=== PATIENT | male | born 1960 | race Caucasian/White ===

== ENCOUNTER → 2018-10-15 13:54 | Emergency (ER) | payer MEDICAID, OTHER ==
[~2018-10-15 13:54] MED LIST: HYDROcodone/ACETAMIN 5-325 MG* 1 TAB PO ONE; Ibuprofen TAB* 600 MG PO ONE
[2018-10-15 17:28] VITALS: BP 134/67
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
== END | disposition home or self-care (01) ==
LOC: ED 13:54
DX: M25.461 Effusion, right knee (principal); R60.0 Localized edema; Z88.2 Allergy status to sulfonamides; F17.210 Nicotine dependence, cigarettes, uncomplicated
CPT/HCPCS: 99282; A9270-GY

== ENCOUNTER → 2018-10-20 14:23 | Emergency (ER) | payer MEDICAID ==
[~2018-10-20 14:23] MED LIST changes: -Ibuprofen TAB* 600 MG PO ONE; +Lidocaine 1% MPF wEPI 200,000* 30 ML SDV INJ ONE; +Lidocaine 2% EPI 1:200000 MPF*10-20 ML VIAL ONE; +Morphine VIAL* 10 MG/ML 1 ML VIAL IM ONE; +Morphine VIAL* 4 MG/ML VIAL (1 ml vial) IM ONE; +Morphine VIAL* 4 MG/ML VIAL (1 ml vial) ONE
[2018-10-20 16:17] LABS: ABS Basophils 0.1 10^3/ul (0-0.2); ABS Eosinophils 0.2 10^3/ul (0-0.6); ABS Lymphocytes 1.8 10^3/ul (1.0-4.8); ABS Monocytes 0.8 10^3/ul (0-0.8); ABS Neutrophils 8.6 10^3/ul (1.5-7.7); ABS Nucleated RBC 0 10^3/ul; Hematocrit 41 % (42-52); Hemoglobin 14.3 g/dl (14.0-18.0); Lymphocyte % 15.6 %; Mean Corpuscular HGB Conc 35 g/dl (31-36); Mean Corpuscular Hemoglobin 30 pg (27-31); Mean Corpuscular Volume 86 fL (80-94); Mean Platelet Volume 6.6 fL (7.4-10.4); Nucleated Red Blood Cells % 0; Platelet Count 399 10^3/ul (150-450); Red Cell Distribution Width 13 % (10.5-15); White Blood Count 11.5 10^3/ul (3.5-10.8)
[2018-10-20 16:34] LABS: Albumin 3.9 g/dL (3.2-5.2); Albumin/Globulin Ratio 1.3 (1-3); BUN/Creatinine Ratio 20.7 (8-20); C Reactive Protein 194.01 mg/L (<8.01); Calcium 9.6 mg/dL (8.6-10.3); EGFR Non-African American 96.8 (>60); Globulin 3.1 g/dL (2-4); Potassium 4.5 mmol/L (3.5-5.0); Total Bilirubin 0.4 mg/dL (0.2-1.0)
[2018-10-20 17:00] LABS: Erythrocyte Sed Rate 70 mm/Hr (0-20)
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
[2018-10-20 18:01] VITALS: BP 146/78
[2018-10-23 16:49] LABS: Lyme Disease Serology Equivocal (Negative)
[2018-10-24 16:52] LABS: Lyme Disease IgG Ab WB Negative (Negative); Lyme Disease IgM Bands Present p41 kDa
== END | disposition home or self-care (01) ==
LOC: ED 14:23
DX: M25.461 Effusion, right knee (principal); Z72.0 Tobacco use; B19.20 Unspecified viral hepatitis C without hepatic coma; I10 Essential (primary) hypertension; I20.9 Angina pectoris, unspecified; Z88.2 Allergy status to sulfonamides; Z88.5 Allergy status to narcotic agent; F41.9 Anxiety disorder, unspecified
CPT/HCPCS: 20610; 36415; 80053; 85025; 85652; 86140; 86617; 86618; 96372; 99281; J2001; J2270

== ENCOUNTER 2018-11-11 19:17 | Emergency (ER) | payer MEDICAID ==
--- OUTSIDE RECORDS SUMMARY | 2018-11-11 19:49 | XMS REPORT | Continuity of Care Document ---
:1960 External Reference #:[id number] Author Name Camila Hargrove Care Team Providers Name Role Phone Sofia Medina MD Primary Care Physician Unavailable Payers Type Date Identification Numbers Payment Provider Subscriber Policy Number: [id number] Medicaid [employer] Name: 1 1 [address] PayID: [id number] [place] [address] Effective: 2012 Policy Number: [id number] [place] [employer] Expires: 2018 Group Name: [id number] [address] PayID: [id number] [place] [address] Advance Directives Description No Information Available Problems Description No Information Family History Date Family Member(s) Problem(s) Comments General Cancer General Rheumatoid Arthritis Social History Type Date Description Comments Sex Unknown Lives With Alone Occupation Unemployed ETOH Use Denies alcohol use Tobacco Use Start: Unknown Patient is a current smoker, smokes every day Smoking Status Reviewed: 11/09/18 Patient is a current smoker, smokes every day Exercise Type/Frequency Exercises regularly Allergies, Adverse Reactions, Alerts Date Description Reaction Status Severity Comments 11/04/2018 Vancomycin fever Active 11/09/2018 Sulfa Antibiotics Active 11/09/2018 Codeine Active Medications Medication Date Status Form Strength Qnty SIG Indications Ordering Provider Ceftriaxone Sodium Active Solution 2gm once Unknown /0000 Rec daily via picc line through [place] Eliquis Active Tablets 5mg take 1 Unknown /0000 tablet by mouth twice a day Hydrochlorothiazide Active Tablets 25mg take 1/2 Unknown /0000 tablet by mouth once daily Metformin HCL Active Tablets 500mg Take 1 Unknown /0000 Tablet By Mouth Twice A Day ( 8 Am And 5 PM) Metoprolol Tartrate Active Tablets 25mg Take Unknown /0000 1+1/2 Tablets By Mouth Twice A Day Potassium Chloride 00 Active Tablets 20Meq take 1 Unknown Sarah ER /0000 ER tablet by mouth once daily Tramadol HCL 0000 Active Tablets 50mg take 1 Unknown /0000 tablet by mouth 6 hours if needed for pain maximum daily dose of 4 Trazodone HCL 00 Active Tablets 50mg take 1 Unknown /0000 tablet by mouth at bedtime if needed for sleep Lisinopril 00 Active Tablets 10mg take 1 Unknown /0000 tablet by mouth once daily Immunizations Description No Information Available Vital Signs Date Vital Result Comment 11/09/2018 2:07pm Height 70 inches 5'10" Weight 230.00 lb patient states Heart Rate 84 /min BP Systolic 144 mmHg BP Diastolic 70 mmHg Body Temperature 98.7 F Pain Level 7 BMI (Body Mass Index) 33.0 kg/m2 06/28/2013 10:12am Height 70 inches 5'10" Weight 211.00 lb Heart Rate 72 /min BP Systolic 141 mmHg BP Diastolic 80 mmHg BMI (Body Mass Index) 30.3 kg/m2 Results Test Date Facility Test Result H/L Range Note CBC Auto Diff 11/07/2018 [facility] White Blood 12.3 10^3/uL High 3.5-10.[address] [place] [address] [phone] Red Blood Count 4.64 10^6/uL N 4.00-5.40 Hemoglobin 13.4 g/dL Low 14.0-18.0 Hematocrit 39 % Low 42-52 Mean Corpuscular Volume 84 fL N 80-94 Mean Corpuscular Hemoglobin 29 pg N 27-31 Mean Corpuscular HGB Conc 34 g/dL N 31-36 Red Cell Distribution Width 13 % N 10.5-15 Platelet Count 619 10^3/uL High 150-450 Mean Platelet Volume 6.8 fL Low 7.4-10.4 Abs Neutrophils 8.6 10^3/uL High 1.5-7.7 Abs Lymphocytes 2.2 10^3/uL N 1.0-4.8 Abs Monocytes 1.1 10^3/uL High 0-0.8 Abs Eosinophils 0.3 10^3/uL N 0-0.6 Abs Basophils 0.1 10^3/uL N 0-0.2 Abs Nucleated RBC 0 10^3/uL Granulocyte % 69.9 % Lymphocyte % 18.0 % Monocyte % 9.0 % Eosinophil % 2.6 % Basophil % 0.5 % Nucleated Red Blood Cells % 0 Comp Metabolic Panel 11/07/2018 [facility] Sodium 133 mmol/L Low 135-[address] [place] [address] [phone] Potassium 4.5 mmol/L N 3.5-5.0 Chloride 95 mmol/L Low 101-111 Co2 Carbon Dioxide 30 mmol/L N 22-32 Anion Gap 8 mmol/L N 2-11 Glucose 276 mg/dL High 70-100 Blood Urea Nitrogen 16 mg/dL N 6-24 Creatinine 0.73 mg/dL N 0.67-1.17 BUN/Creatinine Ratio 21.9 High 8-20 Calcium 10.2 mg/dL N 8.6-10.3 Total Protein 7.0 g/dL N 6.4-8.9 Albumin 3.6 g/dL N 3.2-5.2 Globulin 3.4 g/dL N 2-4 Albumin/Globulin Ratio 1.1 N 1-3 Total Bilirubin 0.60 mg/dL N 0.2-1.0 Alkaline Phosphatase 92 U/L N 34-104 Alt 49 U/L N 7-52 Ast 15 U/L N 13-39 Egfr Non- 110.7 >60 Egfr 134.0 >60 1 Laboratory test 11/07/2018 [facility] C Reactive 110.06 mg/L High <8.[address] [place] [address] [phone] 1 Because ethnic data is not always readily available, this report includes an eGFR for both -Americans and non- Americans. The National Kidney Disease Education Program (NKDEP) does not endorse the use of the MDRD equation for patients that are not between the ages of 18 and 70, are , have extremes of body size, muscle mass, or nutritional status, or are non- or non-. According to the National Kidney Foundation, irrespective of diagnosis, the stage of the disease is based on the level of kidney function: Stage Description GFR(mL/min/1.73 m(2)) 1 Kidney damage with normal or decreased GFR 90 2 Kidney damage with mild decrease in GFR 60-89 3 Moderate decrease in GFR 30-59 4 Severe decrease in GFR 15-29 5 Kidney failure <15 (or dialysis) Procedures Date Code Description Status 10/30/2018 08473 Arthroscopy,Knee For Infection,Lavage & Drainage Completed 10/30/2018 40784 Arthroscopy,Knee For Infection,Lavage & Drainage Completed 09/08/2013 09307 Left Heart Cath. Incl S/I Coronaries, Angio S/I V Gram If Completed Done 09/08/2013 90862 Cath PLMT&NJX L Ventriculog Img S&I Completed 09/08/2013 11968 Left Health Catheterization W/Inj For Left Completed Ventriculography,S&I 09/07/2013 57840 ECHO Transthorasic Realtime 2D W Doppler & Color Flow Hosp Completed 09/07/2013 32937 Treadmill Interp/Report Only Completed 09/07/2013 75311 Treadmill Interp/Report Only Completed 09/07/2013 85546 Stress Test Supervsn W/Out I/R Completed 09/07/2013 86984 Stress Test Supervsn W/Out I/R Completed 06/12/2013 19926 EKG, Interpretation Only Completed Encounters Type Date Location Provider Dx Diagnosis Office Visit 11/03/2018 [facility] M00.861 Arthritis due to 11:53a july Castillo M.D. other bacteria, Hospitalists right knee E11.9 Type 2 diabetes mellitus without complications I82.401 Acute embolism and thombos unsp deep veins of r low extrem I10 Essential (primary) hypertension Office Visit 11/02/2018 [facility] E11.9 Type 2 diabetes 11:52a july Castillo M.D. mellitus without Hospitalists complications I82.409 Acute embolism and thombos unsp deep vn unsp lower extremity M00.861 Arthritis due to other bacteria, right knee I10 Essential (primary) hypertension Office Visit 11/01/2018 [facility] E11.9 Type 2 diabetes 11:49a july Castillo M.D. mellitus without Hospitalists complications I82.409 Acute embolism and thombos unsp deep vn unsp lower extremity M00.861 Arthritis due to other bacteria, right knee I10 Essential (primary) hypertension Office Visit 10/31/2018 [facility] Rm M00.861 Arthritis due 11:48a Assoc,july Duarte MD to other Hospitalists bacteria, right knee I82.409 Acute embolism and thombos unsp deep vn unsp lower extremity R73.9 Hyperglycemia, unspecified I10 Essential (primary) hypertension Office Visit 10/30/2018 [facility] Thomas Abdalla M00.861 Arthritis due 11:48a Assoc,july Duarte MD to other Hospitalists bacteria, right knee R73.9 Hyperglycemia, unspecified I10 Essential (primary) hypertension Office Visit 03/19/2016 12:20p [facility] Mary Kay Mast, R79.89 Other specified Assoc,july [place] abnormal Hospitalists findings of blood chemistry B19.20 Unspecified viral hepatitis C without hepatic coma Z72.0 Tobacco use Office Visit 03/18/2016 12:17p [facility] Ina R79.89 Other specified Assoc,july Coon NP abnormal Hospitalists findings of blood chemistry B19.20 Unspecified viral hepatitis C without hepatic coma Z72.0 Tobacco use I10 Essential (primary) hypertension Office Visit 09/08/2013 3:50p [facility] Pavel Rangel, 786.50 Pain Chest Assoc,july [place] Unspec Hospitalists 300.00 Anxiety State Unspec 401.9 Hypertension Unspec 305.1 Tobacco Use Disorder Office Visit 09/08/2013 3:32p [facility] Qutaybeh S. 786.50 Pain Chest Rosemarie Swift Unspec Office Visit 09/07/2013 11:28a [facility] Qutaybeh S. 786.50 Pain Chest Rosemarie Swift Unspec Office Visit 09/05/2013 3:49p [facility] Sisi Real, 786.50 Pain Chest Assoc,pc D.O. Unspec Hospitalists 401.9 Hypertension Unspec 305.1 Tobacco Use Disorder 300.00 Anxiety State Unspec Office Visit 06/12/2013 1:43p [facility] Mary Kay Mast, 461.9 Sinusitis Acute Assoc,july [place] Unspec Hospitalists 780.02 Transient Alteration Of Awareness 070.54 Hepatitis C Viral Chronic W/O Hepatic Coma Office Visit 06/11/2013 [facility] Mary Kay 485 Bronchopneumonia 1:42p Assoc,pc Kezia, M.D. Organism Unspec Hospitalists 995.91 Sepsis 461.9 Sinusitis Acute Unspec 780.02 Transient Alteration Of Awareness Office 05/15/2013 [facility] 842.13 Sprains & Strains Visit 11:00a [facility] Hand C.M.A. Interphalangeal (Joint) Office 05/02/2013 [facility] 841.1 Sprains & Strains Visit 11:00a [facility] Ulnar Collateral C.M.A. (Ligament) Plan of Treatment Future Appointment(s):11/22/2018 10:50 am - Mikie Tillman M.D. at [facility] Hkozbnjk68/23/2019 - Sana Bee M.D.M00.861 Arthritis due to other bacteria, right kneeFollow up:Follow up: 9-10 days nsswicR34.401 Acute embolism and thrombosis of unspecified deep veins of r
[2018-11-11] MEDS ORDERED: oxyCODONE TAB* 5 MG TAB PO ONE (20:17)
[2018-11-11 20:50] VITALS: BP 110/70
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
== END 2018-11-11 20:50 | disposition home or self-care (01) ==
LOC: ED 19:17
DX: T82.898A Other specified complication of vascular prosthetic devices, implants and grafts, initial encounter (principal); Z88.5 Allergy status to narcotic agent; Z88.2 Allergy status to sulfonamides; F17.210 Nicotine dependence, cigarettes, uncomplicated
CPT/HCPCS: 99282; A9270-GY

== ENCOUNTER 2018-12-29 15:13 | Emergency (ER) | payer MEDICAID, OTHER ==
--- OUTSIDE RECORDS SUMMARY | 2018-12-29 15:19 | XMS REPORT | Continuity of Care Document ---
:1960 External Reference #:[id number] Author Name Con Davis M.D. Address [address] [place] [address] Care Team Providers Name Role Phone Sofia Medina M.D. Primary Care Physician Unavailable Payers Date Identification Numbers Payment Provider Subscriber Policy Number: [id number] Medicaid Gray Ervin PayID: [id number] [address] [place] [address] Advance Directives Description No Information Available Problems Date Description Provider Status Onset: Type 2 diabetes mellitus Active Onset: Essential hypertension Active Onset: Arthritis Active Family History Date Family Member(s) Observation Comments Father No Current Problems Mother No Current Problems Paternal Grandmother Glaucoma Social History Type Date Description Comments Sex Unknown Marital Status Single Occupation Self-Employed Work Status Full-Time Employment ETOH Use Denies alcohol use Tobacco Use Start: Unknown Heavy tobacco smoker (more than 10 cigarettes/day) Recreational Drug Use Denies Drug Use Smoking Status Reviewed: 12/01/18 Heavy tobacco smoker (more than 10 cigarettes/day) Allergies, Adverse Reactions, Alerts Date Description Reaction Status Severity Comments 12/01/2018 Codeine Active 12/01/2018 Sulfa Antibiotics Active Medications Medication Date Status Form Strength Qnty SIG Indications Ordering Provider Gabapentin Active Capsules 300mg take 1 Unknown /0000 capsule by mouth twice a day Metformin HCL Active Tablets 500mg take 2 Unknown /0000 tablets by mouth twice a day Hydrocodone-Acetam Active Tablets 5-325mg Unknown inophen /0000 Oxycodone HCL Active Tablets 5mg take 1 Unknown /0000 tablet by mouth every 6 hours if needed (Use To Alternate ... (Refer To Prescriptio n Notes). Potassium Chloride Active Tablets 20Meq take 1 Unknown Sarah ER /0000 ER tablet by mouth once daily Metoprolol Active Tablets 25mg Take 1+1/2 Unknown Tartrate /0000 Tablets By Mouth Twice A Day Hydrochlorothiazid Active Tablets 25mg take 1/2 Unknown e /0000 tablet by mouth once daily Eliquis Active Tablets 5mg take 1 Unknown /0000 tablet by mouth twice a day Symbicort Active Aerosol 160-4.5mc Unknown /0000 g/Act Lisinopril Active Tablets 10mg take 1 Unknown /0000 tablet by mouth once daily Immunizations Description No Information Available Vital Signs Description No Information Available Results Description No Information Available Procedures Description No Information Available Encounters Description No Information Available Plan of Treatment 12/01/2018 - Con Davis M.D.E11.9 Type 2 diabetes mellitus without complicationsComments:Smoking can increase the risk of developing or worsening any eye related disease, as well as affect your overall health. If you are a smoker, we strongly recommend that you quit.If you are not a smoker, we strongly recommend that you do not start. You have diabetes. I do not detect any changes in both of your retinas from diabetes at this time. Proper control of your diabetes is important for the health of your eyes. Changes in your eyes from diabetes can happen without symptoms, so it is important that you have your eyes examined.Follow up:1 Year Follow Up DFE You can expect to have your eyes dilated at your next visit. If Dr. Davis orders any additional testing, it may require extra time. We recommend that you bring sunglasses, as dilation drops often make you light sensitive until they wear off. We always recommend you bring someone to drive you home if you are uncomfortable driving with your eyes dilated. If you have any questions before your next visit, feel free to call our office at .H25.13 Age-related nuclear cataract, bilateralComments:You have been diagnosed with cataracts. If you are happy with your vision as it is now, then we willsee you at your next scheduled appointment. If you feel like your vision is getting worse before your scheduled appointment, please call [facility]ai or [facility] at [phone].
--- OUTSIDE RECORDS SUMMARY | 2018-12-29 15:19 | XMS REPORT | Continuity of Care Document ---
:1960 External Reference #:[id number] Author Name Elida Gonzalez Care Team Providers Name Role Phone Sofia Medina MD Primary Care Physician Unavailable Payers Date Identification Numbers Payment Provider Subscriber Policy Number: [id number] Medicaid Jinny Ervin Group Name: 1 1 [address] PayID: [id number] [place] [address] Effective: 2012 Policy Number: [id number] Wili Jinny Ervin Expires: 2018 Group Name: [id number] [address] PayID: [id number] [place] [address] Advance Directives Description No Information Available Problems Description No Information Family History Date Family Member(s) Observation Comments General Cancer General Rheumatoid Arthritis Social History Type Date Description Comments Sex Unknown Lives With Alone Occupation Unemployed ETOH Use Denies alcohol use Tobacco Use Start: Unknown Patient is a current smoker, smokes every day Smoking Status Reviewed: 12/01/18 Patient is a current smoker, smokes every day Exercise Type/Frequency Exercises regularly Allergies, Adverse Reactions, Alerts Date Description Reaction Status Severity Comments 11/04/2018 Vancomycin fever Active 11/09/2018 Sulfa Antibiotics Active 11/09/2018 Codeine Active Medications Medication Date Status Form Strength Qnty SIG Indications Ordering Provider Oxycodone HCL 11/19 Active Tablets 5mg 12tab 1 tabs by s mouth every F 6 hours as Sung, needed use MD to alternate with hydrocodone for 3 days Colace 11/19 Active Capsules 100mg 30cap 1 tab by s mouth twice F a day as Sung, needed for MD constipatio n Hydrocodone-Acetam 11/09 Active Tablets 5-325mg 40tab 1 tabs s every 4-6 F hours as Sung, needed for MD pain. MDD 6 Ceftriaxone Sodium Active Solution 2gm once daily Unknown /0000 Rec via picc line through [facility] Eliquis Active Tablets 5mg 60tab take 1 Niko s tablet by F mouth twice Sung, a day MD Hydrochlorothiazid Active Tablets 25mg take 1/2 Unknown e /0000 tablet by mouth once daily Metformin HCL Active Tablets 500mg Take 1 Unknown /0000 Tablet By Mouth Twice A Day ( 8 Am And 5 PM) Metoprolol Active Tablets 25mg Take 1+1/2 Unknown Tartrate /0000 Tablets By Mouth Twice A Day Potassium Chloride Active Tablets 20Meq take 1 Unknown Sarah ER /0000 ER tablet by mouth once daily Tramadol HCL Active Tablets 50mg take 1 Unknown /0000 tablet by mouth 6 hours if needed for pain maximum daily dose of 4 Trazodone HCL Active Tablets 50mg take 1 Unknown /0000 tablet by mouth at bedtime if needed for sleep Lisinopril Active Tablets 10mg take 1 Unknown /0000 tablet by mouth once daily Immunizations Description No Information Available Vital Signs Date Vital Result Comment 12/01/2018 12:55pm Height 70 inches 5'10" Weight 230.00 lb Heart Rate 99 /min BP Systolic 128 mmHg BP Diastolic 68 mmHg Respiratory Rate 20 /min Body Temperature 97.2 F Pain Level 6 BMI (Body Mass Index) 33.0 kg/m2 11/14/2018 2:02pm Height 70 inches 5'10" Weight 230.00 lb BP Systolic 112 mmHg BP Diastolic 70 mmHg Pain Level 9 BMI (Body Mass Index) 33.0 kg/m2 11/09/2018 2:07pm Height 70 inches 5'10" Weight [...] Result H/L Range Note CBC Auto Diff 11/28/2018 [facility] White Blood 8.6 10^3/uL N 3.5-10.[address] [place] [address] [phone] Red Blood Count 4.14 10^6/uL N 4.00-5.40 Hemoglobin 12.4 g/dL Low 14.0-18.0 Hematocrit 35 % Low 42-52 Mean Corpuscular Volume 85 fL N 80-94 Mean Corpuscular Hemoglobin 30 pg N 27-31 Mean Corpuscular HGB Conc 35 g/dL N 31-36 Red Cell Distribution Width 14 % N 10.5-15 Platelet Count 396 10^3/uL N 150-450 Mean Platelet Volume 6.6 fL Low 7.4-10.4 Abs Neutrophils 5.2 10^3/uL N 1.5-7.7 Abs Lymphocytes 2.4 10^3/uL N 1.0-4.8 Abs Monocytes 0.6 10^3/uL N 0-0.8 Abs Eosinophils 0.4 10^3/uL N 0-0.6 Abs Basophils 0.1 10^3/uL N 0-0.2 Abs Nucleated RBC 0 10^3/uL Granulocyte % 59.9 % Lymphocyte % 28.3 % Monocyte % 6.5 % Eosinophil % 4.7 % Basophil % 0.6 % Nucleated Red Blood Cells % 0 Comp Metabolic Panel 11/28/2018 [facility] Sodium 135 mmol/L N 135-[address] [place] [address] [phone] Potassium 4.2 mmol/L N 3.5-5.0 Chloride 99 mmol/L Low 101-111 Co2 Carbon Dioxide 28 mmol/L N 22-32 Anion Gap 8 mmol/L N 2-11 Glucose 160 mg/dL High 70-100 Blood Urea Nitrogen 16 mg/dL N 6-24 Creatinine 0.71 mg/dL N 0.67-1.17 BUN/Creatinine Ratio 22.5 High 8-20 Calcium 10.1 mg/dL N 8.6-10.3 Total Protein 7.2 g/dL N 6.4-8.9 Albumin 4.2 g/dL N 3.2-5.2 Globulin 3.0 g/dL N 2-4 Albumin/Globulin Ratio 1.4 N 1-3 Total Bilirubin 0.50 mg/dL N 0.2-1.0 Alkaline Phosphatase 87 U/L N 34-104 Alt 19 U/L N 7-52 Ast 10 U/L Low 13-39 Egfr Non- 114.4 >60 Egfr 138.4 >60 1 Laboratory test 11/28/2018 [facility] C Reactive 11.56 mg/L High <8.[address] [place] [address] [phone] CBC Auto Diff 11/23/2018 [facility] White Blood 8.4 N 3.5- 10.[address] Count 10^3/[place] [address] [phone] Red Blood Count 4.05 10^6/uL N 4.00-5.40 Hemoglobin 12.1 g/dL Low 14.0-18.0 Hematocrit 34 % Low 42-52 Mean Corpuscular Volume 85 fL N 80-94 Mean Corpuscular Hemoglobin 30 pg N 27-31 Mean Corpuscular HGB Conc 35 g/dL N 31-36 Red Cell Distribution Width 13 % N 10.5-15 Platelet Count 456 10^3/uL High 150-450 Mean Platelet Volume 6.7 fL Low 7.4-10.4 Abs Neutrophils 5.7 10^3/uL N 1.5-7.7 Abs Lymphocytes 1.8 10^3/uL N 1.0-4.8 Abs Monocytes 0.6 10^3/uL N 0-0.8 Abs Eosinophils 0.3 10^3/uL N 0-0.6 Abs Basophils 0.1 10^3/uL N 0-0.2 Abs Nucleated RBC 0 10^3/uL Granulocyte % 67.8 % Lymphocyte % 21.1 % Monocyte % 6.8 % Eosinophil % 3.6 % Basophil % 0.7 % Nucleated Red Blood Cells % 0.1 Comp Metabolic Panel 11/23/2018 [facility] Sodium 136 mmol/L N 135-[address] [place] [address] [phone] Potassium 4.4 mmol/L N 3.5-5.0 Chloride 100 mmol/L Low 101-111 Co2 Carbon Dioxide 27 mmol/L N 22-32 Anion Gap 9 mmol/L N 2-11 Glucose 236 mg/dL High 70-100 Blood Urea Nitrogen 15 mg/dL N 6-24 Creatinine 0.82 mg/dL N 0.67-1.17 BUN/Creatinine Ratio 18.3 N 8-20 Calcium 9.9 mg/dL N 8.6-10.3 Total Protein 7.0 g/dL N 6.4-8.9 Albumin 4.0 g/dL N 3.2-5.2 Globulin 3.0 g/dL N 2-4 Albumin/Globulin Ratio 1.3 N 1-3 Total Bilirubin 0.30 mg/dL N 0.2-1.0 Alkaline Phosphatase 98 U/L N 34-104 Alt 22 U/L N 7-52 Ast 10 U/L Low 13-39 Egfr Non- 96.8 >60 Egfr 117.2 >60 2 Laboratory test 11/23/2018 [facility] C Reactive 11.51 High < 8.[address] Protein mg/[place] [address] [phone] Laboratory test 11/16/2018 [facility] Point of Care 204 mg/dL High 70-100 [address] [place] [address] [phone] Laboratory test 11/14/2018 [facility] Erythrocyte Sed 101 mm/Hr High 0-[address] [place] [address] [phone] CBC Auto Diff 11/14/2018 [facility] White Blood 12.1 High 3.5- 10.[address] Count 10^3/[place] [address] [phone] Red Blood Count 4.22 10^6/uL N 4.00-5.40 Hemoglobin 12.2 g/dL Low 14.0-18.0 Hematocrit 36 % Low 42-52 Mean Corpuscular Volume 85 fL N 80-94 Mean Corpuscular Hemoglobin 29 pg N 27-31 Mean Corpuscular HGB Conc 34 g/dL N 31-36 Red Cell Distribution Width 13 % N 10.5-15 Platelet Count 578 10^3/uL High 150-450 Mean Platelet Volume 7.1 fL Low 7.4-10.4 Abs Neutrophils 8.7 10^3/uL High 1.5-7.7 Abs Lymphocytes 2.4 10^3/uL N 1.0-4.8 Abs Monocytes 0.7 10^3/uL N 0-0.8 Abs Eosinophils 0.3 10^3/uL N 0-0.6 Abs Basophils 0.1 10^3/uL N 0-0.2 Abs Nucleated RBC 0 10^3/uL Granulocyte % 71.6 % Lymphocyte % 19.9 % Monocyte % 5.9 % Eosinophil % 2.1 % Basophil % 0.5 % Nucleated Red Blood Cells % 0.1 Laboratory test 11/14/2018 [facility] C Reactive 84.39 mg/L High <8.[address] Protein [place], [place] [id number] [phone] Comp Metabolic 11/14/2018 [facility] Sodium 130 mmol/L Low 135 -[address] [place] [address] [phone] Potassium 4.8 mmol/L N 3.5-5.0 Chloride 94 mmol/L Low 101-111 Co2 Carbon Dioxide 29 mmol/L N 22-32 Anion Gap 7 mmol/L N 2-11 Glucose 357 mg/dL High 70-100 Blood Urea Nitrogen 19 mg/dL N 6-24 Creatinine 0.83 mg/dL N 0.67-1.17 BUN/Creatinine Ratio 22.9 High 8-20 Calcium 10.0 mg/dL N 8.6-10.3 Total Protein 7.2 g/dL N 6.4-8.9 Albumin 3.9 g/dL N 3.2-5.2 Globulin 3.3 g/dL N 2-4 Albumin/Globulin Ratio 1.2 N 1-3 Total Bilirubin 0.40 mg/dL N 0.2-1.0 Alkaline Phosphatase 87 U/L N 34-104 Alt 25 U/L N 7-52 Ast 11 U/L Low 13-39 Egfr Non- 95.5 >60 Egfr 115.5 >60 4 Wound 11/09/2018 [facility] Wound/Misc SEE RESULT 5 Culture/Sensi [address] [place] [address] Stain [phone] Laboratory test 11/09/2018 [facility] Anaerobic SEE RESULT [address] [place] [place] [address] [phone] Laboratory test 11/09/2018 [facility] Point of Care 224 mg/dL High 70-1 [address] Glucose 00 [place] [address] [phone] CBC Auto Diff 11/07/2018 [facility] White Blood 12.3 High 3.5 - [address] Count 10^3/uL 10.8 [place] [address] [phone] Red Blood Count 4.64 10^6/uL N 4.00-5.40 [...] Cells % 0 Comp Metabolic Panel 11/07/2018 [facility] Sodium 133 mmol/L Low 135-[address] [place] [address] [phone] Potassium 4.5 mmol/L N 3.5-5.0 Chloride 95 [...] Egfr Non- 110.7 >60 Egfr 134.0 >60 8 Laboratory test 11/07/2018 [facility] C Reactive 110.06 mg/L High <8.[address] [address] [phone] 1 Because ethnic data is not always [...] 15-29 5 Kidney failure <15 (or dialysis) 2 Because ethnic data is not always readily [...] 15-29 5 Kidney failure <15 (or dialysis) 3 Drill Operator Pneumatic: [id number] 4 Because ethnic data is not always readily [...] 15-29 5 Kidney failure <15 (or dialysis) 5 SEE RESULT BELOW Name: JINNY ERVIN : [address]: Sana Bee MD Acct: [id number] Unit: [id number] AGE: 58 Location: OR Re11/09/18 SEX: M Status: REG SDC SPEC: [id number] JAYLEN: 11/09/18 [facility] [address]: Sana Bee MD REQ: [id number] RECD: 11/09/18 STATUS: JET HUANG DR: Sofia Medina MD _ SOURCE: KNEE,RIGHT SPDESC: ORDERED: Culture Stain Procedure Result Reported Site Wound/Misc Gram Stain Final 11/10/18832 ML 4+ Neutrophils No Organisms Seen BY CYTOSPIN SMEAR Wound/Misc Culture Final 11/13/18816 ML No Growth Day 4 * ML - Main Lab . END OF REPORT DEPARTMENT OF PATHOLOGY, [address] [place] [address] Yevgeniy Donahue M.D. Director [facility] # [id number] 6 SEE RESULT BELOW Name: JINNY ERVIN : [address]: Sana Bee MD Acct: [id number] Unit: [id number] AGE: 58 Location: OR Re11/09/18 SEX: M Status: REG SDC SPEC: [id number] JAYLEN: 11/09/18 [facility] [address]: Sana Bee MD REQ: [id number] RECD: 11/09/18 STATUS: JET HUANG DR: Sofia Medina MD _ SOURCE: WOUND SPDESC:KNEE RIGHT ORDERED: Anaerobic Cult Procedure Result Reported Site Anaerobic Culture Final 11/13/18- 18 ML No Growth Day 4 * ML - Main Lab . END OF REPORT DEPARTMENT OF PATHOLOGY, [address] [place] [address] Yevgeniy Donahue M.D. Director [facility] # [id number] 7 Drill Operator Pneumatic: [id number] 8 Because ethnic data is not always readily [...] (or dialysis) Procedures Date Code Description Status 11/16/2018 39772 Arthroscopy Knee Synovectomy Major Completed 11/16/2018 53989 Arthroscopy Knee Synovectomy Major Completed 11/09/2018 29459 Arthroscopy,Knee For Infection,Lavage & Drainage Completed 11/09/2018 87217 Arthroscopy,Knee For Infection,Lavage & Drainage Completed 10/30/2018 51626 Arthroscopy,Knee For Infection,Lavage & Drainage Completed 10/30/2018 01577 Arthroscopy,Knee For Infection,Lavage & Drainage Completed 09/08/2013 34536 Left Heart Cath. Incl S/I Coronaries, Angio S/I V Gram If Completed Done 09/08/2013 11663 Cath PLMT&NJX L Ventriculog Img S&I Completed 09/08/2013 89216 Left Health Catheterization W/Inj For Left Completed Ventriculography,S&I 09/07/2013 14531 ECHO Transthorasic Realtime 2D W Doppler & Color Flow Hosp Completed 09/07/2013 57158 Treadmill Interp/Report Only Completed 09/07/2013 12772 Treadmill Interp/Report Only Completed 09/07/2013 39367 Stress Test Supervsn W/Out I/R Completed 09/07/2013 81236 Stress Test Supervsn W/Out I/R Completed 06/12/2013 14912 EKG, Interpretation Only Completed Encounters Type Date Location Provider Dx Diagnosis Office Visit 11/19/[address] [facility] [address] Hayes M00.9 Pyogenic 12:55p july Castillo M.D.,FACP arthritis, Hospitalists unspecified E11.9 Type 2 diabetes mellitus without complications I10 Essential (primary) hypertension I82.409 Acute embolism and thombos unsp deep vn unsp lower extremity Office Visit 11/17/2018 12:54p [facility] Alma M00.9 Pyogenic Assocjuly, arthritis, Hospitalists GANG SUPERVISOR unspecified E11.65 Type 2 diabetes mellitus with hyperglycemia I10 Essential (primary) hypertension Office Visit 11/16/2018 [facility] Mary Kay Mast, M00.861 Arthritis due 12:54p july Castillo M.D. to other Hospitalists bacteria, right knee E11.9 Type 2 diabetes mellitus without complications I10 Essential (primary) hypertension Office Visit 11/03/2018 [facility] M00.861 Arthritis due 11:53a july Castillo M.D. to other Hospitalists bacteria, right knee E11.9 Type 2 diabetes mellitus without complications I82.401 Acute embolism and thombos unsp deep veins of r low extrem I10 Essential (primary) hypertension Office Visit 11/02/2018 [facility] E11.9 Type 2 diabetes 11:52a july Castillo M.D. mellitus without Hospitalists complications I82.409 Acute embolism and thombos unsp deep vn unsp lower extremity M00.861 Arthritis due to other bacteria, right knee I10 Essential (primary) hypertension Office Visit 11/01/2018 [facility] E11.9 Type 2 diabetes 11:49a july Castillo M.D. mellitus without Hospitalists complications I82.409 Acute embolism and thombos unsp deep vn unsp lower extremity M00.861 Arthritis due to other bacteria, right knee I10 Essential (primary) hypertension Office Visit 10/31/2018 [place] Sylvia Hayes M00.861 Arthritis due 10:05a Infectious [place]que[place], M.D. to other Diseases bacteria, right knee Office Visit 10/31/2018 [facility] Thomas Abdalla M00.861 Arthritis due 11:48a Assoc,july Duarte MD to other Hospitalists bacteria, right knee I82.409 Acute embolism and thombos unsp deep vn unsp lower extremity R73.9 Hyperglycemia, unspecified I10 Essential (primary) hypertension Office Visit 10/30/2018 [facility] Thomas Abdalla M00.861 Arthritis due 11:48a Assoc,july Duarte MD to other Hospitalists bacteria, right knee R73.9 Hyperglycemia, unspecified I10 Essential (primary) hypertension Office Visit 10/29/2018 11:47a [facility] Sisi M25.561 Pain in Assoc,july Real D.O. right knee Hospitalists R73.9 Hyperglycemia, unspecified I10 Essential (primary) hypertension Office Visit 03/19/2016 12:20p [facility] Mary Kay Mast, R79.89 Other specified Assoc,july [place] abnormal Hospitalists findings of blood chemistry B19.20 Unspecified viral hepatitis C without hepatic coma Z72.0 Tobacco use Office Visit 03/18/2016 12:17p [facility] Ina R79.89 Other specified Assoc,july Coon NP abnormal Hospitalists findings of blood chemistry B19.20 Unspecified viral hepatitis C without hepatic coma Z72.0 Tobacco use I10 Essential (primary) hypertension Office Visit 09/08/2013 3:50p [facility] Pavel Rangel, 786.50 Pain Chest Assocjuly M.D. Unspec Hospitalists 300.00 Anxiety State Unspec 401.9 Hypertension Unspec 305.1 Tobacco Use Disorder Office Visit 09/08/2013 3:32p [place] [facility] Qutaybeh S. 786.50 Pain Chest Rosemarie Swift Unspec Office Visit 09/07/2013 11:28a [facility] Qutaybeh S. 786.50 Pain Chest Rosemarie Swift Unspec Office Visit 09/05/2013 3:49p [facility] Sisi Real, 786.50 Pain Chest Assoc,july D.O. Unspec Hospitalists 401.9 Hypertension Unspec 305.1 Tobacco Use Disorder 300.00 Anxiety State Unspec Office Visit 06/12/2013 1:43p [facility] Kezia, 461.9 Sinusitis Acute Assocjuly M.D. Unspec Hospitalists 780.02 Transient Alteration Of Awareness 070.54 Hepatitis C Viral Chronic W/O Hepatic Coma Office Visit 06/11/2013 [facility] 485 Bronchopneumonia 1:42p Assoc,july Mast M.D. Organism Unspec Hospitalists 995.91 Sepsis 461.9 Sinusitis Acute Unspec 780.02 Transient Alteration Of Awareness Office 05/15/2013 [facility] 842.13 Sprains & Strains Visit 11:00a [facility] Interphalangeal (Joint) Office 05/02/2013 [facility] 841.1 Sprains & Strains Visit 11:00a [facility] Ulnar Collateral [facility] (Ligament) Plan of Treatment Future Appointment(s):12/15/2018 9:45 am - Niko Almaraz MD at [facility]/01/2018 - Niko Almaraz, MDM00.9 Pyogenic arthritis, unspecifiedNew Therapy:Physical TherapyFollow up:Follow up: 2 azbqbT90.65 Type 2 diabetes mellitus with hyperglycemia
--- OUTSIDE RECORDS SUMMARY | 2018-12-29 15:19 | XMS REPORT | Continuity of Care Document ---
:1960 External Reference #:[id number] Author Name Elida Gonzalez Care Team Providers Name Role Phone Sofia Medina MD Primary Care Physician Unavailable Payers Date Identification Numbers Payment Provider Subscriber Policy Number: [id number] Medicaid Jinny Ervin Group Name: 1 1 [address] PayID: [id number] [place] [address] Effective: 2012 Policy Number: [id number] Wili Jinny Ervin Expires: 2018 Group Name: [id number] [address] PayID: [id number] [place] [address] Advance Directives Description No Information Available Problems Description No Information Family History Date Family Member(s) Observation Comments General Cancer General Rheumatoid Arthritis Social History Type Date Description Comments Sex Unknown Lives With Alone Occupation Unemployed ETOH Use Denies alcohol use Tobacco Use Start: Unknown Patient is a current smoker, smokes every day Smoking Status Reviewed: 12/15/18 Patient is a current smoker, smokes every day Exercise Type/Frequency Exercises regularly Allergies, Adverse Reactions, Alerts Date Description Reaction Status Severity Comments 11/04/2018 Vancomycin fever Active 11/09/2018 Sulfa Antibiotics Active 11/09/2018 Codeine Active Medications Medication Date Status Form Strength Qnty SIG Indications Ordering Provider Naproxen 12/15 Active Tablets 500mg 60tab 1 by mouth M00.261 s twice a day F as needed Sung, pain Colyvonne 11/19 Active Capsules 100mg 30cap 1 tab by s mouth twice F a day as Sung, needed for constipatio n Hydrocodone-Acetam 11/09 Active Tablets 5-325mg 40tab 1 tabs s every 4-6 F hours as Sung, needed for pain. mdd 6 Eliquis Active Tablets 5mg 60tab take 1 s tablet by F mouth twice yanely Almaraz MD Metformin HCL Active Tablets 500mg Take 1 Unknown /0000 Tablet By Mouth Twice A Day ( 8 Am And 5 PM) Metoprolol Active Tablets 25mg Take 1+1/2 Unknown Tartrate /0000 Tablets By Mouth Twice A Day Potassium Chloride Active Tablets 20Meq take 1 Unknown Sarah ER /0000 ER tablet by mouth once daily Lisinopril Active Tablets 10mg take 1 Unknown /0000 tablet by mouth once daily Oxycodone HCL 11/19 Hx Tablets 5mg 12tab 1 tabs by s mouth every F - 6 hours as Sung, 12/15 needed use to alternate with hydrocodone for 3 days Ceftriaxone Sodium Hx Solution 2gm once daily Unknown /0000 Rec via picc - line 12/15 through [facility] Hydrochlorothiazid Hx Tablets 25mg take 1/2 Unknown e /0000 tablet by - mouth once 12/15 Tramadol HCL Hx Tablets 50mg take 1 Unknown /0000 tablet by - mouth 6 12/15 hours if needed for pain maximum daily dose of 4 Trazodone HCL Hx Tablets 50mg take 1 Unknown /0000 tablet by - mouth at 12/15 bedtime needed for sleep Immunizations Description No Information Available Vital Signs Date Vital Result Comment 12/15/2018 9:31am Height 70 inches 5'10" Weight 229.00 lb BP Systolic 152 mmHg BP Diastolic 78 mmHg Pain Level 5 BMI (Body Mass Index) 32.9 kg/m2 12/01/2018 2:45pm Height 70 inches 5'10" Weight 229.00 lb Heart Rate 92 /min BP Systolic Sitting 142 mmHg BP Diastolic Sitting 80 mmHg Respiratory Rate 14 /min Body Temperature 98.6 F BMI (Body Mass Index) 32.9 kg/m2 12/01/2018 12:55pm Height 70 inches 5'10" Weight [...] Date Facility Test Result H/L Range Note Comp Metabolic Panel 12/05/2018 [facility] Sodium 136 mmol/L N 135-[address] [place] [address] [phone] Potassium 4.4 mmol/L N 3.5-5.0 Chloride 101 mmol/L N 101-111 Co2 Carbon Dioxide 29 mmol/L N 22-32 Anion Gap 6 mmol/L N 2-11 Glucose 149 mg/dL High 70-100 Blood Urea Nitrogen 9 mg/dL N 6-24 Creatinine 0.71 mg/dL N 0.67-1.17 BUN/Creatinine Ratio 12.7 N 8-20 Calcium 9.9 mg/dL N 8.6-10.3 Total Protein 7.0 g/dL N 6.4-8.9 Albumin 4.2 g/dL N 3.2-5.2 Globulin 2.8 g/dL N 2-4 Albumin/Globulin Ratio 1.5 N 1-3 Total Bilirubin 0.40 mg/dL N 0.2-1.0 Alkaline Phosphatase 81 U/L N 34-104 Alt 17 U/L N 7-52 Ast 11 U/L Low 13-39 Egfr Non- 114.4 >60 Egfr 138.4 >60 2 Laboratory test 12/05/2018 [facility] C Reactive 12.63 mg/L High <8.01 [address] [place] [address] [phone] CBC Auto Diff 12/05/2018 [facility] White Blood 6.9 N 3.5- 10.[address] Count 10^3/[place] [address] [phone] Red Blood Count 4.21 10^6/uL N 4.00-5.40 Hemoglobin 12.5 g/dL Low 14.0-18.0 Hematocrit 36 % Low 42-52 Mean Corpuscular Volume 85 fL N 80-94 Mean Corpuscular Hemoglobin 30 pg N 27-31 Mean Corpuscular HGB Conc 35 g/dL N 31-36 Red Cell Distribution Width 15 % N 10.5-15 Platelet Count 350 10^3/uL N 150-450 Mean Platelet Volume 6.9 fL Low 7.4-10.4 Abs Neutrophils 3.9 10^3/uL N 1.5-7.7 Abs Lymphocytes 2.1 10^3/uL N 1.0-4.8 Abs Monocytes 0.4 10^3/uL N 0-0.8 Abs Eosinophils 0.4 10^3/uL N 0-0.6 Abs Basophils 0.1 10^3/uL N 0-0.2 Abs Nucleated RBC 0 10^3/uL Granulocyte % 56.4 % Lymphocyte % 30.7 % Monocyte % 6.4 % Eosinophil % 5.7 % Basophil % 0.8 % Nucleated Red Blood Cells % 0.1 CBC Auto Diff 11/28/2018 [facility] White Blood 8.6 10^3/uL N 3.5-10.[address] [place] [address] [phone] Red Blood Count 4.14 10^6/uL N 4.00-5.40 [...] Cells % 0 Comp Metabolic Panel 11/28/2018 [facility] Sodium 135 mmol/L N 135-[address] [place] [address] [phone] Potassium 4.2 mmol/L N 3.5-5.0 Chloride 99 [...] Egfr Non- 114.4 >60 Egfr 138.4 >60 4 Laboratory test 11/28/2018 [facility] C Reactive 11.56 mg/L High <8.[address] [place] [address] [phone] CBC Auto Diff 11/23/2018 [facility] White Blood 8.4 N 3.5- 10.[address] Count 10^3/[place] [address] [phone] Red Blood Count 4.05 10^6/uL N 4.00-5.40 [...] Cells % 0.1 Comp Metabolic Panel 11/23/2018 [facility] Sodium 136 mmol/L N 135-[address] [place] [address] [phone] Potassium 4.4 mmol/L N 3.5-5.0 Chloride 100 [...] Egfr Non- 96.8 >60 Egfr 117.2 >60 5 Laboratory test 11/23/2018 [facility] C Reactive 11.51 High < 8.[address] Protein mg/[place] [address] [phone] Laboratory test 11/16/2018 [facility] Point of Care 204 mg/dL High 70-100 [address] [place] [address] [phone] Laboratory test 11/14/2018 [facility] Erythrocyte Sed 101 mm/Hr High 0-[address] [place] [address] [phone] CBC Auto Diff 11/14/2018 [facility] White Blood 12.1 High 3.5- 10.[address] Count 10^3/[place] [address] [phone] Red Blood Count 4.22 10^6/uL N 4.00-5.40 [...] Blood Cells % 0.1 Laboratory test 11/14/2018 [facility] C Reactive 84.39 mg/L High <8.[address] [place] [address] [phone] Comp Metabolic 11/14/2018 [facility] Sodium 130 mmol/L Low 135 -[address] [place] [address] [phone] Potassium 4.8 mmol/L N 3.5-5.0 Chloride 94 [...] Egfr Non- 95.5 >60 Egfr 115.5 >60 7 Wound 11/09/2018 [facility] Wound/Misc SEE RESULT 8 Culture/Sensi [address] Culture[place] [address] Stain [phone] Laboratory test 11/09/2018 [facility] Anaerobic SEE RESULT [address] Culture BELOW [place], [place] [address] [phone] Laboratory test 11/09/2018 [facility] Point of Care 224 mg/dL High 70-1 [address] Glucose 00 [place], [place] [address] [phone] CBC Auto Diff 11/07/2018 [facility] White Blood 12.3 High 3.5 - [address] Count 10^3/uL 10.8 [place] [address] [phone] Red Blood Count 4.64 10^6/uL N 4.00-5.40 [...] Cells % 0 Comp Metabolic Panel 11/07/2018 [facility] Sodium 133 mmol/L Low 135-[address] [place] [address] [phone] Potassium 4.5 mmol/L N 3.5-5.0 Chloride 95 [...] Egfr Non- 110.7 >60 Egfr 134.0 >60 11 Laboratory test 11/07/2018 [facility] C Reactive 110.06 mg/L High <8.[address] [place] [address] [phone] 1 [id number] PLEASE FAX COPY TO [facility] 2 Because ethnic data is not always [...] 5 Kidney failure <15 (or dialysis) 3 [id number] PLEASE FAX COPY TO [facility] 4 Because ethnic data is not always [...] 5 Kidney failure <15 (or dialysis) 5 Because ethnic data is not always readily [...] 15-29 5 Kidney failure <15 (or dialysis) 6 Direct Mail Marketer: [id number] 7 Because ethnic data is not always readily [...] 15-29 5 Kidney failure <15 (or dialysis) 8 SEE RESULT BELOW Name: JINNY ERVIN Kahlil : [address]: Sana Bee MD Acct: [id number] Unit: [id number] AGE: 58 Location: OR Re11/09/18 SEX: M Status: REG SDC SPEC: [id number] JAYLEN: 11/09/[address] [facility] [address]: Sana Bee MD REQ: [id number] RECD: 11/09/18 STATUS: JET HUANG DR: Sofia Medina MD _ SOURCE: KNEE,RIGHT SPDESC: ORDERED: Culture Stain Procedure Result Reported Site Wound/Misc Gram Stain Final 11/10/18832 ML 4+ Neutrophils No Organisms Seen BY CYTOSPIN SMEAR Wound/Misc Culture Final 11/13/18- 816 ML No Growth Day 4 * ML - Main Lab . END OF REPORT DEPARTMENT OF PATHOLOGY, [address] [place] [address] Yevgeniy Donahue M.D. Director [facility] # [id number] 9 SEE RESULT BELOW Name: JINNY ERVIN : [address]: Sana Bee MD Acct: [id number] Unit: [id number] AGE: 58 Location: OR Re11/09/18 SEX: M Status: REG SDC SPEC: [id number] JAYLEN: 11/09/[address] [facility] [address]: Sana Bee MD REQ: [id number] RECD: 11/09/18 STATUS: JET HUANG DR: Sofia Medina MD _ SOURCE: WOUND SPDESC:KNEE RIGHT ORDERED: Anaerobic Cult Procedure Result Reported Site Anaerobic Culture Final 11/13/18- 18 ML No Growth Day 4 * ML - Main Lab . END OF REPORT DEPARTMENT OF PATHOLOGY, [address] [place] [address] Yevgeniy Donahue M.D. Director [facility] # [id number] 10 Direct Mail Marketer: [id number] 11 Because ethnic data is not always readily [...] dialysis) Procedures Date Code Description Status 11/16/2018 89948 Arthroscopy Knee Synovectomy Major Completed 11/16/2018 40271 Arthroscopy Knee Synovectomy Major Completed 11/09/2018 24511 Arthroscopy,Knee For Infection,Lavage & Drainage Completed 11/09/2018 63817 Arthroscopy,Knee For Infection,Lavage & Drainage Completed 10/30/2018 35975 Arthroscopy,Knee For Infection,Lavage & Drainage Completed 10/30/2018 98325 Arthroscopy,Knee For Infection,Lavage & Drainage Completed 09/08/2013 68104 Left Heart Cath. Incl S/I Coronaries, Angio S/I V Gram If Completed Done 09/08/2013 17458 Cath PLMT&NJX L Ventriculog Img S&I Completed 09/08/2013 92845 Left Health Catheterization W/Inj For Left Completed Ventriculography,S&I 09/07/2013 34838 ECHO Transthorasic Realtime 2D W Doppler & Color Flow Hosp Completed 09/07/2013 77901 Treadmill Interp/Report Only Completed 09/07/2013 90382 Treadmill Interp/Report Only Completed 09/07/2013 62007 Stress Test Supervsn W/Out I/R Completed 09/07/2013 83970 Stress Test Supervsn W/Out I/R Completed 06/12/2013 19852 EKG, Interpretation Only Completed Encounters Type Date Location Provider Dx Diagnosis Office Visit 12/01/2018 [facility] Ivanna Hayes Z79.2 [facility] ( current) 2:40p Infectious Rosemarie Tillman use of antibiotics Diseases 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 to other Diseases bacteria, right knee I82.401 Acute embolism and thombos unsp deep veins of r low extrem E10.9 Type 1 diabetes mellitus without complications Office Visit 11/17/2018 12:54p [facility] Alma M00.9 Pyogenic Assoc,july Matta, arthritis, Hospitalists OFFICE CORRESPONDENT unspecified E11.65 Type 2 diabetes mellitus with hyperglycemia I10 Essential (primary) hypertension Office Visit 11/16/2018 [facility] Mary Kay Mast, M00.861 Arthritis due 12:54p july Castillo M.D. to other Hospitalists bacteria, right knee E11.9 Type 2 diabetes mellitus without complications I10 Essential (primary) hypertension Office Visit 11/03/2018 [facility] M00.861 Arthritis due 11:53a july Castillo M.D. to other Hospitalists bacteria, right knee E11.9 Type 2 diabetes mellitus without complications I82.401 Acute embolism and thombos unsp deep veins of r low extrem I10 Essential (primary) hypertension Office Visit 11/02/2018 [facility] E11.9 Type 2 diabetes 11:52a july Castillo M.D. 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 to other Diseases bacteria, right knee Office Visit 10/31/2018 [facility] Thomas Abdalla M00.861 Arthritis due 11:48a Assocjuly MD to other Hospitalists bacteria, right knee I82.409 Acute embolism and thombos unsp deep vn unsp lower extremity R73.9 Hyperglycemia, unspecified I10 Essential (primary) hypertension Office Visit 10/30/2018 [facility] Thomas Abdalla M00.861 Arthritis due 11:48a Assocjuly MD to other Hospitalists bacteria, right knee R73.9 Hyperglycemia, unspecified I10 Essential (primary) hypertension Office Visit 10/29/2018 11:47a [facility] Sisi M25.561 Pain in Assoc,july Real D.O. right knee Hospitalists R73.9 Hyperglycemia, unspecified I10 Essential (primary) hypertension Office Visit 03/19/2016 12:20p [facility] Mary Kay Mast, R79.89 Other specified Assoc,july [place] abnormal Hospitalists findings of blood chemistry B19.20 Unspecified viral hepatitis C without hepatic coma Z72.0 Tobacco use Office Visit 03/18/2016 12:17p [facility] Ina R79.89 Other specified Assoc,july Coon, OFFICE CORRESPONDENT abnormal Hospitalists findings of blood chemistry B19.20 Unspecified viral hepatitis C without hepatic coma Z72.0 Tobacco use I10 Essential (primary) hypertension Office Visit 09/08/2013 3:50p [facility] Pavel Rangel, 786.50 Pain Chest Assoc,july [place] Unspec Hospitalists 300.00 Anxiety State Unspec 401.9 Hypertension Unspec 305.1 Tobacco Use Disorder Office Visit 09/08/2013 3:32p [facility] Qutaybeh S. 786.50 Pain Chest Rosemarie Swift Unspec Office Visit 09/07/2013 11:28a [facility] Qutaybeh S. 786.50 Pain Chest Rosemarie Swift Unspec Office Visit 09/05/2013 3:49p [facility] Sisi Lymanr, 786.50 Pain Chest Assoc,pc D.O. Unspec Hospitalists 401.9 Hypertension Unspec 305.1 Tobacco Use Disorder 300.00 Anxiety State Unspec Office Visit 06/12/2013 1:43p [facility] Mary Kay Kezia, 461.9 Sinusitis Acute Assoc,pc Rosemarie Unspec Hospitalists 780.02 Transient Alteration Of Awareness 070.54 Hepatitis C Viral Chronic W/O Hepatic Coma Office Visit 06/11/2013 [facility] Mary Kay 485 Bronchopneumonia 1:42p Assoc,july Mast M.D. Organism Unspec Hospitalists 995.91 Sepsis 461.9 Sinusitis Acute Unspec 780.02 Transient Alteration Of Awareness Office 05/15/2013 [facility] 842.13 Sprains & Strains Visit 11:00a [facility] Interphalangeal (Joint) Office 05/02/2013 [facility] 841.1 Sprains & Strains Visit 11:00a [facility] Ulnar Collateral [facility] (Ligament) Plan of Treatment Future Appointment(s):01/12/2019 9:45 am - Niko Almaraz MD at [facility]12/15/2018 - Niko Almaraz, MDM00.261 Other streptococcal arthritis, right kneeNew Medication:Naproxen 500 mg - 1 by mouth twice a day as needed painFollow up:Follow up: 4 giymbI51.861 Arthritis due to other bacteria, right knee
[2018-12-29 15:31] VITALS: BP 140/80
--- NOTE | 2018-12-29 15:38 | UC ---
Nausea/Vomiting/Diarrhea HPI - HPI Summary HPI Summary: Diarrhea x 2 wks w/ loose stools. Feels sometimes it is dark almost black and mostly has oily sheen w/ yellowish green. denies foul odor. does not think he took too much ibuprofen. denies etoh use. Recent vancomycin tx x6wkws. for septic knee. Shortly after developed the diarrhea. has occasional abd aches discomfort. - History of Current Complaint Chief Complaint: UCGI Stated Complaint: DIGESTIVE ISSUES Time Seen by Provider: 12/29/18 15:24 Hx Obtained From: Patient Pain Intensity: 3 Pain Scale Used: 0-10 Numeric Diarrhea Characteristics: Watery - Allergies/Home Medications Allergies/Adverse Reactions: Allergies Allergy/AdvReac Type Severity Reaction Status Date / Time codeine Allergy Hives Verified 12/29/18 15:21 Sulfa (Sulfonamide Allergy Difficulty Verified 12/29/18 15:21 Antibiotics) Breathing Home Medications: Home Medications metFORMIN* [Glucophage 500 MG TAB *] 1,000 mg PO 0800,1700 12/29/18 [History Confirmed 12/29/18] PMH/Surg Hx/FS Hx/Imm Hx Previously Healthy: No - recent picc line for septic knee Other History Of: Hepatitis C - Surgical History Surgical History: Yes Surgery Procedure, Year, and Place: hernia repair; facial bone reconstruction 1990. R knee septic- 09/2018, 11/2018 - Family History Known Family History: Positive: Hypertension - Social History Alcohol Use: None Substance Use Type: None Substance Use Comment - Amount & Last Used: per pt: last used 2 months ago Smoking Status (MU): Heavy Every Day Tobacco Smoker Type: Cigarettes Amount Used/How Often: 1 PPD Have You Smoked in the Last Year: No Household Exposure Type: Cigarettes - Immunization History Most Recent Influenza Vaccination: 11/02/18 Most Recent Tetanus Shot: UNSURE Most Recent Pneumonia Vaccination: 11/02/18 Review of Systems All Other Systems Reviewed And Are Negative: Yes Constitutional: Positive: Fatigue. Negative: Fever, Chills Skin: Negative: Rash Respiratory: Negative: Shortness Of Breath, Cough Gastrointestinal: Positive: Vomiting - x 1 episode, Diarrhea - several episodes of watery diarrhea and intermittent loose stools.. Negative: Abdominal Pain Neurological: Negative: Headache, Weakness Physical Exam Triage Information Reviewed: Yes Appearance: Well-Appearing Vital Signs: Initial Vital Signs Temp 98.7 F 12/29/18 15:19 Pulse 91 12/29/18 15:19 Resp 16 12/29/18 15:19 BP 140/80 12/29/18 15:19 Pulse Ox 98 12/29/18 15:19 Vital Signs Reviewed: Yes Eyes: Positive: Other: - lower conjunctiva normal in color; NOT pale Respiratory Exam: Normal Cardiovascular Exam: Normal Abdomen Description: Positive: Soft, Other: - lower abd has mild tenderness.. Negative: CVA Tenderness (R), CVA Tenderness (L), Distended, Guarding Neurological: Positive: Alert Skin: Negative: Rashes Naus/Vom/Diarrhea Course/Dx - Course Course Of Treatment: Watery diarrhea with a greasy sheen x 2 wks w/ intermittent dark black stools and sometimes has loose stools. Trying to stay hydrated but feels it is hard with the amount of diarrhea. Given recent Vanco tx we will r/o C. Diff. allen 12/28/18 labs reviewed and no electrolyte imbalance, Cr was NOT elevated and today we will r/o WBC count. Although on Metformin not thought to be related to do this as he's been on this med for quite some time. UA did show signs of dehdyration. vitals good. We will call w/ results of stool testing. I think he should go to ED should abd pain worsen or symptoms worsen or if he sees blood in stool or if stool progressively gets darker. Pt stable and he did not want to stay here for IV hydration. He verbalized understanding of all else. - Differential Dx/Diagnosis Differential Diagnoses - Male: Appendicitis, Peptic Ulcer Disease, Gastroenteritis (Viral), Diarrhea, Colitis, Gastritis, Dehydration Provider Diagnosis: Dehydration, mild, Diarrhea Condition At Discharge: Stable Discharge - Sign-Out/Discharge Documenting (check all that apply): Patient Departure All imaging exams completed and their final reports reviewed: No Studies - Discharge Plan Condition: Stable Disposition: HOME Patient Education Materials: Acute Diarrhea (ED) Referrals: Sofia Medina MD [Primary Care Provider] - Additional Instructions: We will call you with results from your stool tests. You are showing dehydration so please continue hydrating with frequent sips often. - Billing Disposition and Condition Condition: STABLE Disposition: Home
[2018-12-29 18:28] LABS: ABS Basophils 0.1 10^3/ul (0-0.2); ABS Eosinophils 0.4 10^3/ul (0-0.6); ABS Lymphocytes 2.7 10^3/ul (1.0-4.8); ABS Monocytes 0.7 10^3/ul (0-0.8); ABS Neutrophils 5.4 10^3/ul (1.5-7.7); ABS Nucleated RBC 0 10^3/ul; Eosinophil % 4.7 %; Hematocrit 36 % (36-46); Hemoglobin 12.7 g/dL (14.0-18.0); Lymphocyte % 28.9 %; Mean Corpuscular HGB Conc 35 g/dL (31-36); Mean Corpuscular Hemoglobin 30 pg (27-31); Mean Corpuscular Volume 86 fL (80-94); Mean Platelet Volume 6.5 fL (7.4-10.4); Nucleated Red Blood Cells % 0; Platelet Count 340 10^3/uL (150-450); Red Cell Distribution Width 15 % (10.5-15); White Blood Count 9.2 10^3/uL (3.5-10.8)
--- NOTE | 2018-12-31 14:51 | UC ---
- Progress Note Progress Note: 12/31/2018 final Urine culture: no growth No change Grace Selby PA-C Course/Dx - Diagnoses Provider Diagnoses: Dehydration, mild, Diarrhea Discharge - Sign-Out/Discharge Documenting (check all that apply): Patient Departure - d/C home All imaging exams completed and their final reports reviewed: No Studies - Discharge Plan Condition: Stable Disposition: HOME Patient Education Materials: Acute Diarrhea (ED) Referrals: Sofia Medina MD [Primary Care Provider] - Additional Instructions: We will call you with results from your stool tests. You are showing dehydration so please continue hydrating with frequent sips often. - Billing Disposition and Condition Condition: STABLE Disposition: Home
== END 2018-12-29 16:45 | disposition home or self-care (01) ==
LOC: UCEAST 15:13
DX: E86.0 Dehydration (principal); R19.7 Diarrhea, unspecified; F17.210 Nicotine dependence, cigarettes, uncomplicated; Z88.5 Allergy status to narcotic agent; Z88.2 Allergy status to sulfonamides
CPT/HCPCS: 36415; 81003; 85025; 87086; 99211; G0463

== ENCOUNTER 2019-01-20 06:36 | Emergency (ER) | payer MEDICAID ==
--- OUTSIDE RECORDS SUMMARY | 2019-01-20 07:04 | XMS REPORT | Continuity of Care Document ---
:1960 External Reference #:[id number] Author Name Maxi Miller Care Team Providers Name Role Phone Sofia Medina MD Primary Care Physician Unavailable Payers Date Identification Numbers Payment Provider Subscriber Effective: 2018 Policy Number: [id number] Wili Ervin PayID: [id number] [address] [place] [address] Expires: 2018 Policy Number: [id number] Medicaid Jinny Ervin Group Name: 1 1 [address] PayID: [id number] [place] [address] Effective: 2012 Policy Number: [id number] Wili Ervin Expires: 2018 Group Name: [id number] [address] PayID: [id number] [place] [address] Advance Directives Description No Information Available Problems Description No Information Family History Date Family Member(s) Observation Comments General Cancer General Rheumatoid Arthritis Social History Type Date Description Comments Sex Unknown Lives With Alone Occupation Unemployed ETOH Use Denies alcohol use Tobacco Use Start: Unknown Patient is a current smoker, smokes every day Smoking Status Reviewed: 01/17/19 Patient is a current smoker, smokes every [...] 11/09 Active Tablets 5-325mg 40tab 1 tabs Niko ino s every 4-6 F hours as Sung, needed for MD pain. mdd 6 Eliquis Active Tablets 5mg 60tab take 1 Niko /0000 s tablet by F mouth twice Sung, a day MD Metformin HCL Active Tablets 500mg Take [...] 6 hours as Sung, 12/15 needed use MD to alternate with hydrocodone for 3 days Ceftriaxone Sodium Hx Solution 2gm once daily Unknown /0000 Rec via picc - line 12/15 through [facility] Hydrochlorothiazid Hx Tablets 25mg take 1/2 Unknown e /0000 tablet by - mouth once 12/15 Tramadol HCL Hx Tablets 50mg take 1 Unknown /0000 tablet by - mouth 6 12/15 hours needed for pain maximum daily dose of 4 Trazodone HCL Hx Tablets 50mg take 1 Unknown /0000 tablet by - mouth at 12/15 bedtime needed for sleep Immunizations Description No Information Available Vital Signs Date Vital Result Comment 01/17/2019 10:03am Height 70 inches 5'10" Weight 253.00 lb BP Systolic 146 mmHg BP Diastolic 88 mmHg Body Temperature 97.8 F Pain Level 7 BMI (Body Mass Index) 36.3 kg/m2 12/15/2018 9:31am Height 70 inches 5'10" Weight [...] Result H/L Range Note CBC Auto Diff 12/15/2018 [facility] White Blood 5.6 10^3/uL N 3.5-10.[address] [place] [address] [phone] Red Blood Count 4.30 10^6/uL N 4.00-5.40 Hemoglobin 13.0 g/dL Low 14.0-18.0 Hematocrit 37 % Low 42-52 Mean Corpuscular Volume 86 fL N 80-94 Mean Corpuscular Hemoglobin 30 pg N 27-31 Mean Corpuscular HGB Conc 35 g/dL N 31-36 Red Cell Distribution Width 15 % N 10.5-15 Platelet Count 273 10^3/uL N 150-450 Mean Platelet Volume 6.7 fL Low 7.4-10.4 Abs Neutrophils 3.5 10^3/uL N 1.5-7.7 Abs Lymphocytes 1.4 10^3/uL N 1.0-4.8 Abs Monocytes 0.4 10^3/uL N 0-0.8 Abs Eosinophils 0.3 10^3/uL N 0-0.6 Abs Basophils 0 10^3/uL N 0-0.2 Abs Nucleated RBC 0 10^3/uL Granulocyte % 61.7 % Lymphocyte % 25.5 % Monocyte % 7.4 % Eosinophil % 4.7 % Basophil % 0.7 % Nucleated Red Blood Cells % 0 Comp Metabolic Panel 12/15/2018 [facility] Sodium 137 mmol/L N 135-145 [address] [place] [address] [phone] Potassium 3.9 mmol/L N 3.5-5.0 Chloride 103 mmol/L N 101-111 Co2 Carbon Dioxide 29 mmol/L N 22-32 Anion Gap 5 mmol/L N 2-11 Glucose 222 mg/dL High 70-100 Blood Urea Nitrogen 8 mg/dL N 6-24 Creatinine 0.73 mg/dL N 0.67-1.17 BUN/Creatinine Ratio 11.0 N 8-20 Calcium 9.2 mg/dL N 8.6-10.3 Total Protein 6.5 g/dL N 6.4-8.9 Albumin 4.2 g/dL N 3.2-5.2 Globulin 2.3 g/dL N 2-4 Albumin/Globulin Ratio 1.8 N 1-3 Total Bilirubin 0.40 mg/dL N 0.2-1.0 Alkaline Phosphatase 73 U/L N 34-104 Alt 17 U/L N 7-52 Ast 10 U/L Low 13-39 Egfr Non- 110.7 >60 Egfr 134.0 >60 1 Laboratory test 12/15/2018 [facility] C Reactive 12.48 mg/L High <8.[address] [place] [address] [phone] Comp Metabolic 12/05/2018 [facility] Sodium 136 mmol/L N 135- 145 2 Panel [address] [place] [address] [phone] Potassium 4.4 mmol/L N 3.5-5.0 Chloride 101 [...] Egfr Non- 114.4 >60 Egfr 138.4 >60 3 Laboratory test 12/05/2018 [facility] C Reactive 12.63 mg/L High <8.01 [address] [place] [address] [phone] CBC Auto Diff 12/05/2018 [facility] White Blood 6.9 N 3.5- 10.[address] Count 10^3/[place] [address] [phone] Red Blood Count 4.21 10^6/uL N 4.00-5.40 [...] Cells % 0.1 CBC Auto Diff 11/28/2018 [facility] White Blood 8.6 10^3/uL N 3.5-10.[address] [place] [address] [phone] Red Blood Count 4.14 10^6/uL N 4.00-5.40 [...] Cells % 0 Comp Metabolic Panel 11/28/2018 [facility] Sodium 135 mmol/L N 135-[address] [place] [address] [phone] Potassium 4.2 mmol/L N 3.5-5.0 Chloride 99 [...] Egfr Non- 114.4 >60 Egfr 138.4 >60 5 Laboratory test 11/28/2018 [facility] C Reactive 11.56 mg/L High <8.[address] [place] [address] [phone] CBC Auto Diff 11/23/2018 [facility] White Blood 8.4 N 3.5- 10.[address] Count 10^3/[place] [address] [phone] Red Blood Count 4.05 10^6/uL N 4.00-5.40 [...] Cells % 0.1 Comp Metabolic Panel 11/23/2018 [facility] Sodium 136 mmol/L N 135-[address] [place] [address] [phone] Potassium 4.4 mmol/L N 3.5-5.0 Chloride 100 [...] Egfr Non- 96.8 >60 Egfr 117.2 >60 6 Laboratory test 11/23/2018 [facility] C Reactive 11.51 mg/L High <8.[address] [place] [address] [phone] Laboratory test 11/16/2018 [facility] Point of Care 204 mg/dL High 70-100 [address] [place] [address] [phone] Comp Metabolic 11/14/2018 [facility] Sodium 130 mmol/L Low 135 -[address] [place] [address] [phone] Potassium 4.8 mmol/L N 3.5-5.0 Chloride 94 [...] Egfr Non- 95.5 >60 Egfr 115.5 >60 8 Laboratory test 11/14/2018 [facility] C Reactive 84.39 mg/L High <8.[address] [place] [address] [phone] CBC Auto Diff 11/14/2018 [facility] White Blood 12.1 High 3.5- 10.[address] Count 10^3/[place] [address] [phone] Red Blood Count 4.22 10^6/uL N 4.00-5.40 [...] Blood Cells % 0.1 Laboratory test 11/14/2018 [facility] Erythrocyte Sed 101 mm/Hr High 0-[address] Rate [place], [place] [address] [phone] Wound 11/09/2018 [facility] Wound/Misc SEE RESULT 9 Culture/Sensi [address] [place] [address] Stain [phone] Laboratory test 11/09/2018 [facility] Anaerobic SEE RESULT [address] Culture BELOW [place], [place] [address] [phone] Laboratory test 11/09/2018 [facility] Point of Care 224 mg/dL High 70-100 [address] Glucose [place], [place] [address] [phone] CBC Auto Diff 11/07/2018 [facility] White Blood 12.3 High 3.5- 10.[address] Count 10^3/[place] [address] [phone] Red Blood Count 4.64 10^6/uL N 4.00-5.40 [...] Cells % 0 Comp Metabolic Panel 11/07/2018 [facility] Sodium 133 mmol/L Low 135-[address] [place] [address] [phone] Potassium 4.5 mmol/L N 3.5-5.0 Chloride 95 [...] Egfr Non- 110.7 >60 Egfr 134.0 >60 12 Laboratory test 11/07/2018 [facility] C Reactive 110.06 mg/L High <8.[address] [place] [address] [phone] 1 Because ethnic data is not always [...] 5 Kidney failure <15 (or dialysis) 2 [id number] PLEASE FAX COPY TO [employer] 3 Because ethnic data is not always readily [...] 15-29 5 Kidney failure <15 (or dialysis) 4 [id number] PLEASE FAX COPY TO [employer] 5 Because ethnic data is not always [...] 5 Kidney failure <15 (or dialysis) 6 Because ethnic data is not always readily [...] 15-29 5 Kidney failure <15 (or dialysis) 7 Blast Setter: [id number] 8 Because ethnic data is not always [...] 15-29 5 Kidney failure <15 (or dialysis) 9 SEE RESULT BELOW Name: JINNY ERVIN : [address]: Sana Bee MD Acct: [id number] Unit: [id number] AGE: 58 Location: OR Re11/09/18 SEX: M Status: REG SDC SPEC: [id number] JAYLEN: 11/09/[address] [facility] [address]: Sana Bee MD REQ: [id number] RECD: 11/09/18 STATUS: JET HUANG DR: Sofia Medina MD _ SOURCE: KNEE,RIGHT SPDESC: ORDERED: Culture Stain Procedure Result Reported Site Wound/Misc Gram Stain Final 11/10/18- 832 ML 4+ Neutrophils No Organisms Seen BY CYTOSPIN SMEAR Wound/Misc Culture Final 11/13/18- 816 ML No Growth Day 4 * ML - Main Lab . END OF REPORT DEPARTMENT OF PATHOLOGY, [address] [place] [address] Yevgeniy Donahue M.D. Director [facility] # [id number] 10 SEE RESULT BELOW Name: JINNY ERVIN : [address]: Sana Bee MD Acct: [id number] Unit: [id number] AGE: 58 Location: OR Re11/09/18 SEX: M Status: REG SDC SPEC: [id number] JAYLEN: 11/09/[address] [facility] [address]: Sana Bee MD REQ: [id number] RECD: 11/09/18 STATUS: JET HUANG DR: Sofia Medina MD _ SOURCE: WOUND SPDESC:KNEE RIGHT ORDERED: Anaerobic Cult Procedure Result Reported Site Anaerobic Culture Final 11/13/18817 ML No Growth Day 4 * ML - Main Lab . END OF REPORT DEPARTMENT OF PATHOLOGY, [address] [place] [address] Yevgeniy Donahue M.D. Director [facility] # [id number] 11 Blast Setter: [id number] 12 Because ethnic data is not always readily [...] dialysis) Procedures Date Code Description Status 11/16/2018 39257 Arthroscopy Knee Synovectomy Major Completed 11/16/2018 35661 Arthroscopy Knee Synovectomy Major Completed 11/09/2018 61278 Arthroscopy,Knee For Infection,Lavage & Drainage Completed 11/09/2018 73831 Arthroscopy,Knee For Infection,Lavage & Drainage Completed 10/30/2018 58086 Arthroscopy,Knee For Infection,Lavage & Drainage Completed 10/30/2018 16063 Arthroscopy,Knee For Infection,Lavage & Drainage Completed 09/08/2013 50110 Left Heart Cath. Incl S/I Coronaries, Angio S/I V Gram If Completed Done 09/08/2013 25328 Cath PLMT&NJX L Ventriculog Img S&I Completed 09/08/2013 05958 Left Health Catheterization W/Inj For Left Completed Ventriculography,S&I 09/07/2013 84231 ECHO Transthorasic Realtime 2D W Doppler & Color Flow Hosp Completed 09/07/2013 45007 Treadmill Interp/Report Only Completed 09/07/2013 12311 Treadmill Interp/Report Only Completed 09/07/2013 93839 Stress Test Supervsn W/Out I/R Completed 09/07/2013 77597 Stress Test Supervsn W/Out I/R Completed 06/12/2013 58849 EKG, Interpretation Only Completed Encounters Type Date Location Provider Dx Diagnosis Office Visit 12/01/2018 [facility] Mikie Hayes Z79.2 long-term ( current) 2:40p Infectious Rosemarie Tillman use of antibiotics Diseases 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 to other Hospitalists bacteria, right knee E11.9 Type 2 diabetes mellitus without complications I10 Essential (primary) hypertension Office Visit 11/03/2018 [facility] M00.861 Arthritis due 11:53a Assjuly pierre M.D. to other Hospitalists bacteria, right knee E11.9 Type 2 diabetes mellitus without complications I82.401 Acute embolism and thombos unsp deep veins of r low extrem I10 Essential (primary) hypertension Office Visit 11/02/2018 [facility] E11.9 Type 2 diabetes 11:52a Assjuly pierre M.D. 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 to other Diseases bacteria, right knee Office Visit 10/31/2018 [facility] Thomas Abdalla M00.861 Arthritis due 11:48a Assoc,july Duarte MD to other Hospitalists bacteria, right knee I82.409 Acute embolism and thombos unsp deep vn unsp lower extremity R73.9 Hyperglycemia, unspecified I10 Essential (primary) hypertension Office Visit 10/30/2018 [facility] Thomas Abdalla M00.861 Arthritis due 11:48a Assoc,july Duarte MD to other Hospitalists bacteria, right knee R73.9 Hyperglycemia, unspecified I10 Essential (primary) hypertension Office Visit 10/29/2018 11:47a [facility] Sisi M25.561 Pain in Assoc,Alo Jones.Flex. right knee Hospitalists R73.9 Hyperglycemia, unspecified I10 Essential (primary) hypertension Office Visit 03/19/2016 12:20p [facility] Mary Kay Mast, R79.89 Other specified Assoc,july [place] abnormal Hospitalists findings of blood chemistry B19.20 Unspecified viral hepatitis C without hepatic coma Z72.0 Tobacco use Office Visit 03/18/2016 12:17p [facility] Ina R79.89 Other specified Assoc,july Coon NP abnormal Hospitalists findings of blood chemistry B19.20 Unspecified viral hepatitis C without hepatic coma Z72.0 Tobacco use I10 Essential (primary) hypertension Office Visit 09/08/2013 3:50p [facility] Pavel Rangel, 786.50 Pain Chest Assocjuly M.D. Unspec Hospitalists 300.00 Anxiety State Unspec 401.9 Hypertension Unspec 305.1 Tobacco Use Disorder Office Visit 09/08/2013 3:32p [facility] Qutaybeh S. 786.50 Pain Chest Rosemarie Swift Unspec Office Visit 09/07/2013 11:28a [facility] Noemitaybeh S. 786.50 Pain Chest Rosemarie Swift Unspec Office Visit 09/05/2013 3:49p [facility] Sisi Real, 786.50 Pain Chest Assoc,july D.O. Unspec Hospitalists 401.9 Hypertension Unspec 305.1 Tobacco Use Disorder 300.00 Anxiety State Unspec Office Visit 06/12/2013 1:43p [facility] Kezia, 461.9 Sinusitis Acute Assocjuly M.D. Unspec Hospitalists 780.02 Transient Alteration Of Awareness 070.54 Hepatitis C Viral Chronic W/O Hepatic Coma Office Visit 06/11/2013 [facility] 485 Bronchopneumonia 1:42p Assoc,july Mast M.D. Organism Unspec Hospitalists 995.91 Sepsis 461.9 Sinusitis Acute Unspec 780.02 Transient Alteration Of Awareness Office 05/15/2013 [facility] 842.13 Sprains & Strains Visit 11:00a [facility] Interphalangeal (Joint) Office 05/02/2013 [facility] 841.1 Sprains & Strains Visit 11:00a [facility] Ulnar Collateral [facility] (Ligament) Plan of Treatment Future Appointment(s):02/09/2019 11:30 am - Niko Almaraz MD at [facility]01/17/2019 - Niko Almaraz, MDM00.261 Other streptococcal arthritis, right kneeFollow up:Follow up: 3 cdhnvJ16.89 Encounter for other orthopedic uxgkzxxwoR82.861 Arthritis due to other bacteria , right knee
[2019-01-20] MEDS ORDERED: Morphine 10 MG/ML VIAL (1 ml) IM ONE (07:35)
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
[2019-01-20 07:55] LABS: ABS Basophils 0.1 10^3/ul (0-0.2); ABS Eosinophils 0.4 10^3/ul (0-0.6); ABS Lymphocytes 2.1 10^3/ul (1.0-4.8); ABS Monocytes 0.6 10^3/ul (0-0.8); ABS Neutrophils 4.9 10^3/ul (1.5-7.7); ABS Nucleated RBC 0 10^3/ul; Eosinophil % 5.4 %; Hematocrit 36 % (36-46); Hemoglobin 12.6 g/dL (14.0-18.0); Lymphocyte % 26.2 %; Mean Corpuscular HGB Conc 35 g/dL (31-36); Mean Corpuscular Hemoglobin 30 pg (27-31); Mean Corpuscular Volume 84 fL (80-94); Mean Platelet Volume 6.4 fL (7.4-10.4); Nucleated Red Blood Cells % 0.1; Platelet Count 273 10^3/uL (150-450); Red Blood Count 4.26 10^6 /uL (4.18-5.48); Red Cell Distribution Width 14 % (10.5-15)
[2019-01-20 08:16] LABS: Albumin 3.8 g/dL (3.2-5.2); Albumin/Globulin Ratio 1.5 (1-3); BUN/Creatinine Ratio 16.7 (8-20); C Reactive Protein 12.36 mg/L (<8.01); Calcium 9.1 mg/dL (8.6-10.3); EGFR African American 150.5 (>60); EGFR Non-African American 124.4 (>60); Globulin 2.5 g/dL (2-4); Potassium 3.9 mmol/L (3.5-5.0); Total Bilirubin 0.3 mg/dL (0.2-1.0); Total Protein 6.3 g/dL (6.4-8.9)
[2019-01-20 08:55] VITALS: BP 151/84
== END 2019-01-20 09:01 | disposition home or self-care (01) ==
LOC: ED 06:36
DX: M25.561 Pain in right knee (principal); J44.9 Chronic obstructive pulmonary disease, unspecified; F41.9 Anxiety disorder, unspecified; F17.210 Nicotine dependence, cigarettes, uncomplicated
CPT/HCPCS: 36415; 80053; 85025; 86140; 96372; 99282; J2270

== ENCOUNTER 2019-05-08 14:18 | Emergency (ER) | payer MEDICAID, OTHER ==
[2019-05-08 16:15] VITALS: BP 145/86
--- NOTE | 2019-05-08 16:52 | UC ---
Lower Extremity/Ankle HPI - HPI Summary HPI Summary: Patient is a 58-year-old male who presents to the urgent care with a chief complaint of having right knee pain. The patient is being having this pain for the last couple weeks. Patient has history of arthroscopic surgery in October 2018. The patient is be having pain 10 out of 10 and ambulation, it swollen but no redness. He denies any fevers or chills. He has no other complaints - History of Current Complaint Chief Complaint: UCLowerExtremity Stated Complaint: KNEE PAIN Time Seen by Provider: 05/08/19 16:19 Hx Obtained From: Patient Onset/Duration: Gradual Onset Pain Intensity: 7 - Allergies/Home Medications Allergies/Adverse Reactions: Allergies Allergy/AdvReac Type Severity Reaction Status Date / Time codeine Allergy Hives Verified 05/08/19 16:15 Sulfa (Sulfonamide Allergy Difficulty Verified 05/08/19 16:15 Antibiotics) Breathing PMH/Surg Hx/FS Hx/Imm Hx Previously Healthy: Yes Other History Of: Hepatitis C - Surgical History Surgical History: Yes Surgery Procedure, Year, and Place: hernia repair; facial bone reconstruction 1990. R knee septic- 09/2018, 11/2018 - Family History Known Family History: Positive: Hypertension, Non-Contributory - Social History Alcohol Use: Occasionally Substance Use Type: None Substance Use Comment - Amount & Last Used: per pt: last used 2 months ago Smoking Status (MU): Heavy Every Day Tobacco Smoker Type: Cigarettes Amount Used/How Often: 1 PPD Have You Smoked in the Last Year: No Household Exposure Type: Cigarettes - Immunization History Most Recent Influenza Vaccination: 11/02/18 Most Recent Tetanus Shot: UNSURE Most Recent Pneumonia Vaccination: 11/02/18 Review of Systems All Other Systems Reviewed And Are Negative: Yes Constitutional: Positive: Negative Skin: Positive: Negative Eyes: Positive: Negative ENT: Positive: Negative Respiratory: Positive: Negative Cardiovascular: Positive: Negative Gastrointestinal: Positive: Negative Genitourinary: Positive: Negative Motor: Positive: Negative Neurovascular: Positive: Negative Musculoskeletal: Positive: Arthralgia, Other: - Right knee pain Neurological: Positive: Negative Psychological: Positive: Negative Is Patient Immunocompromised?: No Physical Exam - Summary Physical Exam Summary: VITAL SIGNS: Reviewed. GENERAL: Patient is a well developed and nourished male who is lying comfortably in the stretcher. Patient is not in any acute respiratory distress. HEAD AND FACE: No signs of trauma. No ecchymosis, hematomas or skull depressions. No sinus tenderness. EYES: PERRLA, EOMI x 2, No injected conjunctiva, no nystagmus. EARS: Hearing grossly intact. Ear canals and tympanic membranes are within normal limits. MOUTH: Oropharynx within normal limits. NECK: Supple, trachea is midline, no adenopathy, no JVD, no carotid bruit, no c- spine tenderness, neck with full ROM. CHEST: Symmetric, no tenderness at palpation LUNGS: Clear to auscultation bilaterally. No wheezing or crackles. CVS: Regular rate and rhythm, S1 and S2 present, no murmurs or gallops appreciated. ABDOMEN: Soft, non-tender. No signs of distention. No rebound no guarding, and no masses palpated. Bowel sounds are normal. EXTREMITIES: Right knee with decreased range of motion, swelling, no erythema, no hematomas. NEURO: Alert and oriented x 3. No acute neurological deficits. Speech is normal and follows commands. SKIN: Dry and warmgood steady metastatic Triage Information Reviewed: Yes Appearance: Well-Appearing Vital Signs: Initial Vital Signs Temp 97.2 F 05/08/19 16:12 Pulse 93 05/08/19 16:12 Resp 18 05/08/19 16:12 BP 145/86 05/08/19 16:12 Pulse Ox 97 05/08/19 16:12 Vital Signs Reviewed: Yes Lower Extremity Course/Dx - Course Course Of Treatment: X-ray of the knee shows no fracture dislocation. The patient will follow-up with Dr. Schaefer and . Patient was given days off from work until released by orthopedics. Patient will take his chronic medications. He reports that he is unable to take any opiates. Is hemodynamically stable alert and oriented 3. - Differential Dx/Diagnosis Provider Diagnosis: Knee pain Discharge - Sign-Out/Discharge Documenting (check all that apply): Patient Departure All imaging exams completed and their final reports reviewed: Yes - Discharge Plan Condition: Improved Disposition: HOME Patient Education Materials: Knee Pain (ED), Arthralgia (ED), Swollen Joint (ED ) Forms: *Work Release Referrals: Sofia Medina MD [Primary Care Provider] - Additional Instructions: Take medications as instructed. Elevate right lower extremity Apply ice as needed Off from work until released by orthopedics Follow-up with PCP. - Billing Disposition and Condition Condition: IMPROVED Disposition: Home
== END 2019-05-08 17:00 | disposition home or self-care (01) ==
LOC: UCEAST 14:18
DX: M25.561 Pain in right knee (principal); B19.20 Unspecified viral hepatitis C without hepatic coma; F17.210 Nicotine dependence, cigarettes, uncomplicated; Z88.2 Allergy status to sulfonamides; Z88.5 Allergy status to narcotic agent
CPT/HCPCS: 99211; G0463

== ENCOUNTER 2019-08-18 01:30 | Emergency (ER) | payer MEDICAID ==
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
[2019-08-18 02:23] VITALS: BP 111/63
== END 2019-08-18 02:00 | disposition home or self-care (01) ==
LOC: ED 01:30
DX: T40.1X1A Poisoning by heroin, accidental (unintentional), initial encounter (principal); R11.2 Nausea with vomiting, unspecified; R45.1 Restlessness and agitation; Y92.9 Unspecified place or not applicable; E11.9 Type 2 diabetes mellitus without complications; I10 Essential (primary) hypertension; Z86.718 Personal history of other venous thrombosis and embolism; Z79.01 Long term (current) use of anticoagulants; J44.9 Chronic obstructive pulmonary disease, unspecified; Z88.5 Allergy status to narcotic agent; Z88.2 Allergy status to sulfonamides; F17.210 Nicotine dependence, cigarettes, uncomplicated
CPT/HCPCS: 99282

== ENCOUNTER 2019-08-19 10:56 | Inpatient (IN) | payer MEDICAID, OTHER ==
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
[2019-08-19 12:03] LABS: ABS Basophils 0.1 10^3/ul (0-0.2); ABS Eosinophils 0.5 10^3/ul (0-0.6); ABS Lymphocytes 1.9 10^3/ul (1.0-4.8); ABS Monocytes 0.5 10^3/ul (0-0.8); ABS Neutrophils 6.5 10^3/ul (1.5-7.7); Hematocrit 41 % (42-52); Hemoglobin 14.5 g/dL (14.0-18.0); Lymphocyte % 19.8 %; Mean Corpuscular HGB Conc 35 g/dL (31-36); Mean Corpuscular Hemoglobin 30 pg (27-31); Mean Corpuscular Volume 85 fL (80-94); Mean Platelet Volume 6.4 fL (7.4-10.4); Platelet Count 515 10^3/uL (150-450); Red Blood Count 4.82 10^6 /uL (4.18-5.48); Red Cell Distribution Width 13 % (10-15); White Blood Count 9.4 10^3/uL (3.5-10.8)
[2019-08-19 12:18] LABS: ALT 37 U/L (7-52); AST 15 U/L (13-39); Albumin 4.3 g/dL (3.2-5.2); Albumin/Globulin Ratio 1.5 (1-3); Alkaline Phosphatase 122 U/L (34-104); Anion Gap 6 mmol/L (2-11); BUN/Creatinine Ratio 9.5 (8-20); Blood Urea Nitrogen 9 mg/dL (6-24); CO2 Carbon Dioxide 32 mmol/L (22-32); Calcium 9.6 mg/dL (8.6-10.3); Chloride 100 mmol/L (101-111); EGFR African American 98.5 (>60); EGFR Non-African American 81.4 (>60); Globulin 2.8 g/dL (2-4); Glucose 150 mg/dL (70-100); Magnesium 1.9 mg/dL (1.9-2.7); Sodium 138 mmol/L (135-145); Total Protein 7.1 g/dL (6.4-8.9)
[2019-08-19 12:20] LABS: Troponin I 0.02 ng/mL (<0.04)
[2019-08-19 13:14] LABS: Alcohol < 10 mg/dL (<10); Salicylate < 2.50 mg/dL (<30)
[2019-08-19 13:31] LABS: Acetaminophen 4 mcg/mL
[2019-08-19] MEDS ORDERED: Magnesium Sulfate 2 GM IV* 2 GM/50 ML BAG IVPB ONE (14:18)
[2019-08-19] MEDS ORDERED: Acetaminophen TAB* 325 MG PO PRN (15:27)
[2019-08-19] MEDS ORDERED: Docusate CAP* 100 MG PO PRN (15:27)
[2019-08-19] MEDS ORDERED: hydrALAZINE IV* 20 MG/ML VIAL IV SLOW PU PRN (16:19)
[2019-08-19] MEDS ORDERED: Dextrose 50% VIAL 50 ml IV PUSH PRN (16:25)
[2019-08-19] MEDS: Insulin LISPRO* 1 UNITS UNIT SUBCUT SCH ×2 (16:39→20:37)
--- NOTE | 2019-08-19 19:21 | HP ---
ADMISSION HISTORY AND PHYSICAL: DATE OF ADMISSION: 08/19/19 PRIMARY CARE PROVIDER: None. ATTENDING FOR THIS ADMISSION: Dr. Emerald Bingham.* (DICTATED BY JUAN CAIN NP) CHIEF COMPLAINT: Overdose. HISTORY OF PRESENT ILLNESS: Mr. See is a 59-year-old male patient who presents to the emergency department today with [facility] with complaint of overdose. Per the emergency department notes, the patient was here yesterday with complaint also of overdose then. He was Narcan at that time and then discharge; however, the patient apparently called his [employer] airspace control officer at some point in between and stated he violated his parole and then was subsequently incarcerated. At some point, he was found unresponsive at the [facility] and then was brought back to the emergency department. Apparently, the patient was given Narcan twice prior to arrival. The patient is sleepy, but otherwise appropriate. He is a very poor historian and is difficult to get him to explain the sequence of events leading up to his arrival here in the emergency department. However, his course in the ED was complicated by noted 16 beats of V-tach while he was on telemetry. At that point, then the hospitalists were requested to evaluate the patient for admission. PAST MEDICAL HISTORY: The patient's past medical history again has been difficult to obtain because the patient is a very poor historian, but per previous record in October of this year, past medical history is noted for psoriasis and hypertension. PAST SURGICAL HISTORY: Appears to be bilateral inguinal hernia repairs and looks like he had a previous hospitalization for a septic knee and had incision and drainage and washout at that time. MEDICATIONS: None per the patient. It does appear he is supposed to be taking lisinopril and metformin. ALLERGIES: No known drug allergies. FAMILY HISTORY: His mother at the age of 77 of lung cancer. Father at the age of 78 of Alzheimer's disease. SOCIAL HISTORY: The patient is an active everyday smoker and has a history of heroin and multiple other drug history for 40 years. He is not . He does have 2 children. I think he does live with his girlfriend at this time, although he has been incarcerated multiple times. He has been most recently just released from [facility], not too long ago. REVIEW OF SYSTEMS: The patient is not endorsing any pain. No fever, fatigue, or chills. No chest pain. No shortness of breath. No nausea. No vomiting. No abdominal pain. No urinary complaints. No arthralgias or myalgias. He is stating he is currently suicidal. He states he intentionally took an overdose of 1 g of heroin because he "does not want to live." PHYSICAL EXAMINATION GENERAL: The patient is very drowsy, but is in no acute distress. VITAL SIGNS: Blood pressure 166/75, heart rate 88, respiratory rate between 8 and 12, O2 saturation 88% to 94% on 2 L nasal cannula with a temperature of 98.1. End tidal CO2 which is currently being monitored, is anywhere from 33 to 51. HEENT: The patient is atraumatic, normocephalic. PERRLA. Nonicteric sclerae. Oral mucosa is dry. Tongue is midline. NECK: Supple, nontender. No JVD noted. No carotid bruits auscultated. LUNGS: Clear bilaterally to auscultation with no wheezing, rhonchi, or rales. Slightly diminished at the bases. CARDIOVASCULAR: S1, S2 present. No murmurs, gallops, or rubs noted. Rate and rhythm are regular. He has regular sinus rhythm on telemetry. ABDOMEN: Soft, nontender, nondistended. Positive bowel sounds in all 4 quadrants. : Deferred. MUSCULOSKELETAL: No clubbing, no cyanosis, no edema. Positive pedal pulses noted. NEUROLOGIC: He is drowsy, but arousable. No other focal neuro deficits noted. PSYCHIATRIC: He is somewhat tangential in his thinking. He is endorsing no active suicidal thoughts at this time, but he does have passive suicidal ideation, making statements such as I do not want to live and does admit to his use of heroin with the intention of killing himself prior to his arrival. DIAGNOSTIC STUDIES/LAB DATA: WBCs 9.4, RBCs 4.82, hemoglobin 14.5, hematocrit 41, platelets 515. Sodium 138, potassium 4.0, chloride 100, CO2 of 32, BUN 9, creatinine 0.95, GFR 81.4, glucose 150, lactic acid 0.8, calcium 9.6, magnesium 1.9. Bilirubin 0.40, AST 15, ALT 37, alk phos 122. Troponin 0.02. Total protein 7.1, albumin 4.3, globulin 2.8. Toxicology, salicylates less than 2.5, acetaminophen 4, serum alcohol less than 10. Urine toxicology screen is still pending. IMPRESSION: Mr. See is a 59-year-old male patient with a longstanding history of heroin abuse that presents to the emergency department today with intentional overdose and also noted to have ventricular tachycardia. PLAN: The patient has been admitted to inpatient. DIAGNOSES: 1. Intentional heroin overdose. As stated above, the patient has been given Narcan twice. He does appear to be more awake now. We will continue him on CO2 monitoring and on telemetry monitoring. He says he has not ingested heroin since Wednesday. He is stating that he was in [facility] and he does not remember taking anymore heroin, although I cannot trust his accounting of what happened prior to his arrival because he does not know what day it is. When I questioned the officer that is with him, he is unsure the events that transpire prior to his arrival either, but in any case, the patient does appear to be somewhat more alert and again, we will continue close monitoring. If he would require additional Narcan, this would be provided. 2. Ventricular tachycardia. I do suspect because the patient states he is not taking any medications for blood pressure or diabetes that he likely has some underlying cardiac issues. He has been given 2 g of magnesium. His mag level is normal; however, he should have an echocardiogram, this will be performed tomorrow. I do suspect the patient did have polysubstance abuse in the past. 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 We will continue him on telemetry and assess for any further arrhythmias. If he has more arrhythmias, we will request Cardiology to consult. Once the patient is medically cleared from these issues, then we can discuss continued detoxification. 3. Suicide attempt by overdose. We will consult Psychiatry tomorrow. The patient is not medically cleared to go to [facility] at this time; however, we will involve Psychiatry to determine what the best course of action will be for the patient once he is medically stabilized. 4. DVT prophylaxis: He is low risk and should ambulate as tolerated. 5. Diet: Heart healthy as tolerated. 6. Code status: He is full code. The rest of the patient's course will be determined by further diagnostics, laboratories, and any other input from other providers as warranted during this admission. TIME SPENT: Sixty minutes on admission plan of care. This plan of care has been discussed with Dr. Emerald Bingham, the attending on this case and she is in agreement with the plan of care. JUAN CAIN NP [id number]/[facility]PS #: [id number] DASIA
[2019-08-20 06:41] LABS: ABS Eosinophils 0.4 10^3/ul (0-0.6); ABS Lymphocytes 2.4 10^3/ul (1.0-4.8); ABS Monocytes 0.5 10^3/ul (0-0.8); ABS Neutrophils 5.6 10^3/ul (1.5-7.7); Eosinophil % 4.5 %; Hematocrit 38 % (42-52); Hemoglobin 13.3 g/dL (14.0-18.0); Lymphocyte % 26.7 %; Mean Corpuscular HGB Conc 36 g/dL (31-36); Mean Corpuscular Hemoglobin 30 pg (27-31); Mean Corpuscular Volume 86 fL (80-94); Mean Platelet Volume 6.3 fL (7.4-10.4); Platelet Count 394 10^3/uL (150-450); Red Blood Count 4.39 10^6 /uL (4.18-5.48); Red Cell Distribution Width 13 % (10-15)
[2019-08-20 07:01] LABS: Albumin 3.6 g/dL (3.2-5.2); Albumin/Globulin Ratio 1.5 (1-3); BUN/Creatinine Ratio 10.7 (8-20); Calcium 9.3 mg/dL (8.6-10.3); EGFR African American 113.6 (>60); EGFR Non-African American 93.9 (>60); Globulin 2.4 g/dL (2-4); Potassium 3.8 mmol/L (3.5-5.0); Total Bilirubin 0.4 mg/dL (0.2-1.0)
[2019-08-20] MEDS: Insulin LISPRO* 1 UNITS UNIT SUBCUT SCH ×4 (07:50→21:27)
[2019-08-20 10:12] LABS: Magnesium 2.1 mg/dL (1.9-2.7)
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
[2019-08-20] MEDS ORDERED: Nicotine* 2MG (FRUIT FLAVOR) GUM PO PRN (15:18)
--- NOTE | 2019-08-20 15:21 | PN ---
Subjective Date of Service: 08/20/19 Interval History: No overnight events. He has a dull pain in his chest that is nonradiating. He is alert. Objective Active Medications: Acetaminophen (Tylenol Tab*) 650 mg PO Q4H PRN PRN Reason: MILD PAIN or TEMP > 100.4 Bupropion HCl (Wellbutrin Xl *) 150 mg PO DAILY COLLEEN Dextrose (Dextrose 50% Vial 50 Ml*) 25 ml IV PUSH .FOR FS < 60 - SS PRN PRN Reason: FS < 60 Docusate Sodium (Colace Cap*) 100 mg PO BID PRN PRN Reason: CONSTIPATION Hydralazine HCl (Apresoline Iv*) 5 mg IV SLOW PU Q6H PRN PRN Reason: sbp>170 or dbp >90 Insulin Human Lispro (Humalog*) 0 units SUBCUT ACHS [facility]; Protocol Last Admin: 08/20/19 12:24 Dose: 3 units Nicotine Polacrilex (Nicotine Gum*) 2 mg PO Q2H PRN PRN Reason: CRAVING Vital Signs - 8 hr 08/20/19 08/20/19 08:00 15:03 Temperature 97.6 F Pulse Rate 74 Respiratory 16 18 Rate Blood Pressure 155/83 (mmHg) O2 Sat by Pulse 97 Oximetry Oxygen Devices in Use Now: None Appearance: alert, comfortable, calm Eyes: No Scleral Icterus Ears/Nose/Mouth/Throat: NL Teeth, Lips, Gums Neck: NL Appearance and Movements; NL JVP Respiratory: Symmetrical Chest Expansion and Respiratory Effort Cardiovascular: NL Sounds; No Murmurs; No JVD, RRR Abdominal: NL Sounds; No Tenderness; No Distention Extremities: No Edema Result Diagrams: 08/20/19 06:12 08/20/19 06:12 Assess/Plan/Problems-Billing Assessment: This is a 59 year old man with history of substance use disorder on vivitrol who presented from [facility] on 08/19 where he was found unresponsive. He had injected one gram of heroin two days prior with suicidal intent, was taken to the ED and got narcan and discharged. Then called his parole office to tell him that he violated parole and was sent to snf. - Patient Problems (1) Suicide attempt Current Visit: Yes Status: Acute Comment: evaluated by Dr. Pineda this morning unfortunately he cannot be transferred to [facility] due to needing a court registry officer to accompany him, which cannot happen on 2N will need suicide precautions in snf and ideally more psychiatric help (2) Ventricular tachycardia Current Visit: Yes Status: Acute Code(s): I47.2 - VENTRICULAR TACHYCARDIA SNOMED Code(s): 57816166 Comment: no further events on tele since the ED given his long history of polysubstance use, will get TTE today (3) Chest pain Current Visit: Yes Status: Acute Code(s): R07.9 - CHEST PAIN, UNSPECIFIED SNOMED Code(s): 45671282 Comment: EKG this morning without ischemia, troponins are negative
[2019-08-21 01:15] LABS: Urine Appearance Clear; Urine Bilirubin Negative (Negative); Urine Blood Negative (Negative); Urine Color Straw; Urine Glucose 1+(50 mg/dL) (Negative); Urine Ketones Negative (Negative); Urine Nitrite Negative (Negative); Urine Protein Negative (Negative); Urine Specific Gravity 1.009 (1.010-1.030); Urine Urobilinogen Negative (Negative)
[2019-08-21 01:42] LABS: Urine Benzodiazepine Screen None Detected (None Detect); Urine Opiates Screen None Detected (None Detect)
[2019-08-21] MEDS ORDERED: hydrALAZINE IV* 20 MG/ML VIAL IV SLOW PU ONE (07:31)
[2019-08-21] MEDS ORDERED: Nicotine PATCH 21 MG/24 HR* PATCH TRANSDERM SCH (08:00)
[2019-08-21] MEDS ORDERED: BuPROPion XL* 150 MG TAB.XL PO SCH (09:00)
[2019-08-21] MEDS: Insulin LISPRO* 1 UNITS UNIT SUBCUT SCH ×2 (09:06→12:38)
--- NOTE | 2019-08-21 10:58 | ECHO ---
*[facility]* [place] [address] Fax #: [phone] Transthoracic Echocardiogram Patient: Gray Ervin : 1960 Study Date: 08/21/2019 Age: 59 Gender: M HR: 71 bpm Height: 70 in /177.8 cm BSA: 2.3 m^2 Weight: 229.5 lb /104.3 kg BMI: 33 kg/m^2 *Title Insurance Sales Representative: * [address] [facility] *Referring Physician: * Alma Matta *Reading Physician: * Mark Knapp MD Indications: Abnormal EKG. History: Risk factors: Current tobacco use. Hypertension. Conclusions Summary: - Left ventricle: Systolic function is at the lower limits of normal. The estimated ejection fraction is 45-50%. Wall motion is normal; there are no regional wall motion abnormalities. - Right ventricle: Systolic function is normal. - Mitral valve: There is no significant regurgitation. - Aortic valve: There is no significant regurgitation. - Tricuspid valve: There is trace regurgitation. - Pericardium, extracardiac: There is no significant pericardial effusion. - Pulmonary arteries: Systolic pressure can not be accurately estimated. - Compared to study of 09/07/13, there is no change. Study data: Transthoracic echocardiogram. Procedure: Transthoracic echocardiography was performed. Image quality was fair. The study was technically limited due to poor parasternal acoustic window availability. Complete 2D, spectral Doppler, and color flow Doppler. Location: Bedside. Patient status: Inpatient. Patient room number: 453. Findings Left ventricle: The cavity size is normal. Wall thickness is mildly increased. Systolic function is at the lower limits of normal. The estimated ejection fraction is 45-50%. Wall motion is normal; there are no regional wall motion abnormalities. There is no consistent Doppler evidence of clinically significant diastolic dysfunction. Right ventricle: The cavity size is normal. Systolic function is normal. Left atrium: The atrium is normal in size. Right atrium: The atrium is normal in size. Mitral valve: The leaflets are normal thickness. There is no evidence of stenosis. There is no significant regurgitation. Aortic valve: The valve is probably trileaflet. There is no evidence of stenosis. There is no significant regurgitation. Tricuspid valve: The leaflets are normal thickness. There is no evidence of stenosis. There is trace regurgitation. Pulmonic valve: The leaflets are normal thickness. There is no evidence of stenosis. There is trace regurgitation. Aorta: The aortic root appears normal. The aortic arch appears normal. Pericardium: There is no significant pericardial effusion. Pulmonary arteries: Not well visualized. Systolic pressure can not be accurately estimated. Systemic veins: Inferior vena cava: The vessel is normal in size. There is (>= 50%) respiratory change in the IVC dimension. Measurements Left ventricle Value Ref Right atrium continued Value Ref AMIE, LAX 5.3 cm 4.2 - 5.8 ML dim, ES, A4C 3.2 cm 2.6 - 4.4 ESD, LAX 3.5 cm 2.5 - 4.0 Estimated RAP 8 mm Hg --------- FS, LAX 33 % 25 - 43 PW, ED, LAX (H) 1.2 cm 0.6 - 1.0 Aortic valve Value Ref EF 62 % 52 - 72 Venancio diam, ED 2.6 cm --------- E', lat venancio, TDI (L) 6.8 cm/sec >=10.0 Peak v, S 1.3 m/sec -- ------- E/e', lat venancio, 8 VTI, S 26.5 cm ----- ---- TDI Mean grad, S 4.2 mm Hg --------- E', med venancio, TDI (L) 5.0 cm/sec >=7.0 Peak grad, S 6.8 mm Hg -- ------- E/e', med venancio, 10 LVOT/AV, VTI ratio 0.81 ----- ---- TDI E', avg, TDI 5.9 cm/sec Mitral valve Value Ref E/e', avg, TDI 9 <=14 Peak E 0.52 m/sec -- ------- Peak A 0.72 m/sec --------- LVOT Value Ref Decel time 179 ms --------- Peak alma, S 0.98 m/sec Peak E/A ratio 0.73 --------- VTI, S 21.3 cm Peak grad, S 4 mm Hg Aortic root Value Ref Mean grad, S 2 mm Hg Root diam 3.1 cm <4.4 Ventricular septum Value Ref Ascending aorta Value Ref IVS, ED (H) 1.1 cm 0.6 - 1.0 AAo AP diam, S 3.0 cm --------- Right ventricle Value Ref Aortic arch Value Ref AMIE major ax, (L) 2.2 cm 5.9 - 8.3 Arch diam 3.5 cm --------- A4C Decending aorta Value Ref Left atrium Value Ref Rahul peak alma 0.82 m/sec --------- AP dim, ES (H) 4.40 cm 3.00 - 4.00 Inferior vena cava Value Ref ML dim, A4C 3.6 cm Diam 1.5 cm --------- SI dim, A4C 5.1 cm Vol/bsa, ES, 2-p 25 ml/m^2 16 - 34 Right atrium Value Ref SI dim, ES 4.3 cm 3.4 - 5.3 Legend: (L) and (H) gonsalo values outside specified reference range. Prepared and electronically signed by Mark Knapp MD 08/21/2019 10:57
[2019-08-21 12:07] VITALS: BP 153/93
--- NOTE | 2019-08-22 01:44 | DS ---
`CC: Dr. Medina * DISCHARGE SUMMARY: DATE OF ADMISSION: 08/19/19 DATE OF DISCHARGE: 08/21/19 PRIMARY CARE PROVIDER: Dr. Medina. DISPOSITION ON DISCHARGE: [facility]. CONDITION ON DISCHARGE: Stable. PRIMARY DIAGNOSES: 1. Depression with suicide attempt. 2. Intravenous drug use. 3. Nonsustained ventricular tachycardia. MEDICATIONS AT DISCHARGE: Include: 1. Naltrexone 380 mg IM monthly. 2. Docusate 100 mg twice daily as needed. 3. Wellbutrin 150 mg daily. 4. Acetaminophen 650 mg every 4 hours as needed for pain. Please note the addition of Wellbutrin for depression. HISTORY OF PRESENT ILLNESS AND HOSPITAL COURSE: This is a 59-year-old man with past medical history of opioid use disorder, out of longterm on parole, had episode of increased stress, major depressive disorder, had an attempt on his life with what he described as high-dose heroin. He presented to the emergency room, was given Narcan, returned to the longterm; however, was unconscious, returned again, received Narcan with improvement. Of note, his urine was positive for cocaine. In the emergency room, he was noted to have approximately 22-beat nonsustained ventricular tachycardia. His echocardiogram was notable for an EF of 45% to 50%, which is slightly decreased from prior in 2013. He was monitored on telemetry without further events. No NSVT. He was monitored on a one-to-one. The patient would meet criteria for admission to [facility]; however, cannot be watched in [facility] secondary to need to observed under armed guards. He will be discharged back to the longterm today with recommendation that he be monitored on one-to-one. There are no other complications through the course of his hospital stay. [id number]/[facility] #: [id number] MTDAlo
== END 2019-08-21 14:52 | DRG 201 ==
LOC: ED 10:56 → EEVIPCON 10:56 → MEDTELE 15:27
PROVIDERS: ADMIT Internal Medicine; ATTEND Internal Medicine
DX: I47.2 Ventricular tachycardia (principal); F33.2 Major depressive disorder, recurrent severe without psychotic features; I10 Essential (primary) hypertension; L40.9 Psoriasis, unspecified; F17.210 Nicotine dependence, cigarettes, uncomplicated; T40.1X2A Poisoning by heroin, intentional self-harm, initial encounter; R07.9 Chest pain, unspecified; F11.90 Opioid use, unspecified, uncomplicated; E11.9 Type 2 diabetes mellitus without complications; Z86.19 Personal history of other infectious and parasitic diseases; Y92.9 Unspecified place or not applicable; Z86.718 Personal history of other venous thrombosis and embolism; Z88.5 Allergy status to narcotic agent; Z79.899 Other long term (current) drug therapy; Z80.1 Family history of malignant neoplasm of trachea, bronchus and lung
CPT/HCPCS: 36415; 71045; 80053; 80307; 80320; 80329; 81003; 83036; 83605; 83735; 84484; 85025; 93005; 93306; 96365; 99285; A9270-GY; G0480; J0360; J3475